=== PATIENT | female | born 1995 | race Caucasian/White ===

== ENCOUNTER 2016-09-07 18:46 | Emergency (ER) | payer OTHER ==
[2016-09-07 19:13] VITALS: BP 126/66
--- NOTE | 2016-09-16 22:50 | UC ---
Respiratory Complaint HPI - HPI Summary HPI Summary: painful cough for 2d. Feels tight and wheezy. Malaise, feverish, body aches. Will cough so hard she gags. hard to sleep at night due to cough. - History of Current Complaint Chief Complaint: UCRespiratory Stated Complaint: COUGH,FEVER Time Seen by Provider: 09/07/16 19:37 Hx Obtained From: Patient Hx Last Menstrual Period: End of Jul 2016 Onset/Duration: Gradual Onset, Lasting Days - 4 Timing: Constant Severity Initially: Mild Severity Currently: Mild Pain Intensity: 4 Pain Scale Used: 0-10 Numeric Character: Cough: Nonproductive Aggravating Factors: Exertion, Recumbent Position Alleviating Factors: Nothing Associated Signs And Symptoms: Positive: Dyspnea, Chills, Wheezing, URI, Nasal Congestion, Hoarseness, Sinus Discomfort - Risk Factors Pulmonary Embolism Risk Factors: Negative Cardiac Risk Factors: Negative Pseudomonas Risk Factors: Negative Tuberculosis Risk Factors: Negative - Allergies/Home Medications Allergies/Adverse Reactions: Allergies Allergy/AdvReac Type Severity Reaction Status Date / Time Acetaminophen [From Percocet] AdvReac Vomiting Verified 08/03/16 15:12 Oxycodone [From Percocet] AdvReac Vomiting Verified 08/03/16 15:12 bee sting Allergy Swelling Uncoded 09/07/16 19:13 PMH/Surg Hx/FS Hx/Imm Hx Respiratory History Of: Reports: Asthma - Surgical History Surgical History: None - Family History Known Family History: Positive: Hypertension Negative: Cardiac Disease, Diabetes - Social History Occupation: Student Lives: With Family Alcohol Use: None Substance Use Type: None Smoking Status (MU): Former Smoker When Did the Patient Quit Smoking/Using Tobacco: 2010 Review of Systems Constitutional: Fever, Chills, Fatigue Skin: Negative Eyes: Negative ENT: Sore Throat, Nasal Discharge Respiratory: Shortness Of Breath, Cough Cardiovascular: Negative Gastrointestinal: Negative Genitourinary: Negative Motor: Negative Neurovascular: Negative Musculoskeletal: Negative Neurological: Negative Psychological: Negative All Other Systems Reviewed And Are Negative: Yes Physical Exam Triage Information Reviewed: Yes Appearance: Well-Appearing, No Pain Distress, Well-Nourished Vital Signs: Initial Vital Signs Temp 99.3 F 09/07/16 19:08 Pulse 108 09/07/16 19:08 Resp 18 09/07/16 19:08 BP 126/66 09/07/16 19:08 Pulse Ox 98 02/01/17 19:08 Vital Signs Reviewed: Yes Eye Exam: Normal ENT: Positive: Hearing grossly normal, Pharyngeal erythema - mild, Nasal congestion, TMs normal, Muffled/hoarse voice - hoarse. Negative: Tonsillar swelling, Tonsillar exudate, Trismus Neck exam: Normal Respiratory Exam: Normal Respiratory: Positive: Lungs clear, Normal breath sounds, No respiratory distress, No accessory muscle use Cardiovascular Exam: Normal Musculoskeletal Exam: Normal Neurological Exam: Normal Psychological Exam: Normal Skin Exam: Normal Diagnostic Evaluation - Laboratory O2 Sat by Pulse Oximetry: 98 Respiratory Course/Dx - Differential Dx/Diagnosis Provider Diagnoses: URI Discharge - Discharge Plan Condition: Stable Disposition: HOME Prescriptions: Albuterol HFA INHALER* [Ventolin HFA Inhaler*] 1 - 2 puff INH Q4H PRN #1 mdi PRN Reason: wheezing, cough Guaifenesin-Codeine [Cheratussin AC] 1 - 2 teasp PO Q4HR PRN #120 ml MDD 30ml PRN Reason: Cough predniSONE TAB* [Deltasone TAB*] 40 mg PO DAILY #10 tab Patient Education Materials: Upper Respiratory Infection (ED) Referrals: No Primary Care Phys,NOPCP [Primary Care Provider] -
== END 2016-09-07 20:16 | disposition home or self-care (01) ==
LOC: UCCORT 18:46
DX: J06.9 Acute upper respiratory infection, unspecified (principal); Z88.6 Allergy status to analgesic agent; Z88.5 Allergy status to narcotic agent; Z87.891 Personal history of nicotine dependence
CPT/HCPCS: 99212; G0463

== ENCOUNTER 2017-03-06 17:35 | Emergency (ER) | payer OTHER ==
[2017-03-06 18:32] VITALS: BP 110/57
--- NOTE | 2017-03-06 19:59 | UC ---
Hand/Wrist HPI - HPI Summary HPI Summary: 21 yo female with right hand pain was cleaning under refrig and her partner dropped it on her hand right hand dominant - History Of Current Complaint Chief Complaint: UCUpperExtremity Stated Complaint: RIGHT HAND INJURY Time Seen by Provider: 03/06/17 19:50 Hx Obtained From: Patient Hx Last Menstrual Period: 02/27/17 Onset/Duration: Sudden Onset, Lasting Days Severity Initially: Moderate Severity Currently: Mild Pain Intensity: 3 Pain Scale Used: 0-10 Numeric Character Of Pain: Dull, Aching Aggravating Factor(s): Movement Associated Signs And Symptoms: Positive: Swelling Related History: Dominant Hand Right - Allergies/Home Medications Allergies/Adverse Reactions: Allergies Allergy/AdvReac Type Severity Reaction Status Date / Time Acetaminophen [From Percocet] AdvReac Vomiting Verified 03/06/17 18:32 Oxycodone [From Percocet] AdvReac Vomiting Verified 03/06/17 18:32 bee sting Allergy Swelling Uncoded 03/06/17 18:32 Home Medications: Home Medications Acetaminophen TAB* [Tylenol TAB*] 325 mg PO Q4H PRN 03/06/17 [History Confirmed 03/06/17] PMH/Surg Hx/FS Hx/Imm Hx Previously Healthy: Yes - Surgical History Surgical History: None - Family History Known Family History: Positive: Hypertension Negative: Cardiac Disease, Diabetes - Social History Alcohol Use: None Substance Use Type: None Smoking Status (MU): Former Smoker When Did the Patient Quit Smoking/Using Tobacco: 2010 Review of Systems Constitutional: Negative Skin: Negative Eyes: Negative ENT: Negative Respiratory: Negative Cardiovascular: Negative Gastrointestinal: Negative Genitourinary: Negative Motor: Negative Neurovascular: Negative Musculoskeletal: Decreased ROM, Edema Neurological: Negative Psychological: Negative All Other Systems Reviewed And Are Negative: Yes Physical Exam Triage Information Reviewed: Yes Appearance: Well-Appearing, No Pain Distress, Well-Nourished Vital Signs: Initial Vital Signs Temp 98 F 03/06/17 18:27 Pulse 85 03/06/17 18:27 Resp 16 03/06/17 18:27 BP 110/57 03/06/17 18:27 Pulse Ox 98 03/06/17 18:27 Vital Signs Reviewed: Yes Eyes: Positive: Conjunctiva Clear ENT: Positive: Hearing grossly normal. Negative: Nasal congestion, Nasal drainage, Trismus, Muffled/hoarse voice Neck: Positive: Supple, Nontender Respiratory: Positive: Lungs clear, Normal breath sounds, No respiratory distress, No accessory muscle use Cardiovascular: Positive: RRR, No Murmur Musculoskeletal: Positive: Edema @ - dorsum of right hand Neurological: Positive: Alert Psychological Exam: Normal Skin Exam: Normal Procedures - Splinting Location: ulnar gutter splint (right) Hand-Made Type: orthoglass Splint: ulnar Pre-Proc Neuro Vasc Exam: normal Post-Proc Neuro Vasc Exam: normal Hand/Wrist Course/Dx - Differential Dx/Diagnosis Provider Diagnoses: closed, minimally angulated rigth 5th metacarpal fracture Discharge - Discharge Plan Condition: Stable Disposition: HOME Patient Education Materials: Hand Fracture (ED) Referrals: Paxton Stanton MD [Medical Doctor] - As Soon As Possible Ángela Esqueda MD [Primary Care Provider] - Additional Instructions: splint elevate tylenol or advil if needed follow up with orthopedist this week You have a fracture of the right 5th metacarpal Images Hands: 1 - swollen and ecchymotic. most tender 4th and 5th MCs. skin intact
--- NOTE | 2017-03-06 20:18 | RAD ---
INDICATION: Right hand injury COMPARISON: None TECHNIQUE: AP, lateral, and oblique views were obtained. FINDINGS: There is a mildly angulated transverse fractures of the mid diaphysis of the fifth metacarpal. There are no other fractures. There is associated soft tissue swelling.. IMPRESSION: MILDLY ANGULATED FIFTH METACARPAL FRACTURE.
== END 2017-03-06 20:17 | disposition home or self-care (01) ==
LOC: UCCORT 17:35
DX: S62.306A Unspecified fracture of fifth metacarpal bone, right hand, initial encounter for closed fracture (principal); Z87.891 Personal history of nicotine dependence; W22.8XXA Striking against or struck by other objects, initial encounter; Y92.9 Unspecified place or not applicable; Z88.5 Allergy status to narcotic agent
CPT/HCPCS: 26600; 99211; G0463

== ENCOUNTER 2017-05-07 09:24 | Emergency (ER) | payer SELFPAY ==
[2017-05-07 09:46] VITALS: BP 120/82
--- NOTE | 2017-05-22 13:56 | UC ---
- HPI Summary HPI Summary: 21 y/o [id number] presents to the urgent care requesting a test. She did a test this morning at home and it was positive. LMP: 02/20/2017. She also request and letter for WIC and her family stating she is since they don't believe she is . Pt denies pelvic pain, urinary symptoms, vaginal discharge, SOB, chest pain, N/V/D - History of Current Complaint Chief Complaint: UCGeneralIllness Stated Complaint: PERSONAL Time Seen by Provider: 05/07/17 09:50 Hx Obtained From: Patient Chief Complaint: Other: - of being Timing: Lasting Weeks - LMP 02/20/2017 Current Severity: None Pain Intensity: 0 Character: None Aggravating Factors: Nothing Alleviating Factors: Nothing Associated Signs and Symptoms: Positive: Negative - Assessment Hx Now: Yes - Allergies/Home Medications Allergies/Adverse Reactions: Allergies Allergy/AdvReac Type Severity Reaction Status Date / Time Acetaminophen [From Percocet] AdvReac Vomiting Verified 05/07/17 09:46 Oxycodone [From Percocet] AdvReac Vomiting Verified 05/07/17 09:46 bee sting Allergy Swelling Uncoded 05/07/17 09:46 Home Medications: Home Medications Without A Vit W/ Fe F [ Formula A-Free] 1 tab PO DAILY [History Confirmed 05/07/17] PMH/Surg Hx/FS Hx/Imm Hx Previously Healthy: Yes Respiratory History: Asthma - Surgical History Surgical History: None - Family History Known Family History: Positive: Hypertension Negative: Cardiac Disease, Diabetes - Social History Occupation: Unemployed Lives: With Family Alcohol Use: None Substance Use Type: None Smoking Status (MU): Former Smoker When Did the Patient Quit Smoking/Using Tobacco: 2010 Review of Systems Constitutional: Negative Skin: Negative Eyes: Negative ENT: Negative Respiratory: Negative Cardiovascular: Negative Gastrointestinal: Negative Genitourinary: Negative Motor: Negative Neurovascular: Negative Musculoskeletal: Negative Neurological: Negative Psychological: Negative Is Patient Immunocompromised?: No All Other Systems Reviewed And Are Negative: Yes Physical Exam - Physical Exam Triage Information Reviewed: Yes Vital Signs Reviewed: Yes Appearance: Positive: Well-Appearing, No Pain Distress, Well-Nourished Skin: Positive: Warm, Skin Color Reflects Adequate Perfusion, Dry Head/Face: Positive: Normal Head/Face Inspection Eyes: Positive: Normal, EOMI, KEILY, Conjunctiva Clear ENT: Positive: Normal ENT inspection, Hearing grossly normal, Pharynx normal, TMs normal Neck: Positive: Supple, Nontender, No Lymphadenopathy Respiratory/Lung Sounds: Positive: Clear to Auscultation, Breath Sounds Present Cardiovascular: Positive: Normal, RRR, Pulses are Symmetrical in both Upper and Lower Extremities, S1, S2 Abdomen Description: Positive: Nontender, No Organomegaly, Soft. Negative: CVA Tenderness (R), CVA Tenderness (L) Bowel Sounds: Positive: Present Musculoskeletal: Positive: Normal, Strength/ROM Intact Neurological: Positive: Normal, Sensory/Motor Intact, Alert, Oriented to Person Place, Time, CN Intact II-III, Reflexes Intact Psychiatric: Positive: Normal Course/Dx - Course Course Of Treatment: 21 y/o [id number] presents to the urgent care requesting a test. She did a test this morning at home and it was positive. LMP: 02/20/2017. She also request and letter for WIC and her family stating she is since they don't believe she is . Pt denies pelvic pain, urinary symptoms, vaginal discharge, SOB, chest pain, N/V/D. Hx obtained.PE: WNL, UA and test ordered. UA result:2+ blood,2+ leukoesteraces. Urine will be sent to culture to r/o UTI. test: positive. Pt is pregnanct about 10 weeks. Probable delivery date 11/29/2017. Pt referred to OBGYN for care and advised to continue taking her Vitamins. Pt given letter for WIC. Pt understood and agreed with plan of care. Left the clinic ambulating. - Differential Diagnosis/HQI/PQRI: Cervicitis, Early , UTI - Diagnoses Provider Diagnoses: Discharge - Discharge Plan Condition: Stable Disposition: HOME Patient Education Materials: (ED) Forms: *Gen. Provider Communication Referrals: Ángela Esqueda MD [Primary Care Provider] - 2 Days Additional Instructions: 1-Please start taking Multivitamins. F/u with your OBGYN for further evaluation and treatment on your . 2-Your Urine sent for culture there is probability you may have a Urinary tract infection. If anything returns abnormal you will be notified and treatment will be sent to pharmacy. Please increase fluid intake and drink cranberry juice.
== END 2017-05-07 10:19 | disposition home or self-care (01) ==
LOC: UCCORT 09:24
DX: Z33.1 Pregnant state, incidental (principal); J45.909 Unspecified asthma, uncomplicated; Z88.5 Allergy status to narcotic agent; Z88.6 Allergy status to analgesic agent; Z91.030 Bee allergy status; Z87.891 Personal history of nicotine dependence
CPT/HCPCS: 81003; 84702; 87086; 99211; G0463

== ENCOUNTER 2017-08-07 08:27 | Emergency (ER) | payer MEDICAID ==
[2017-08-07 08:40] VITALS: BP 117/59
--- NOTE | 2017-08-07 08:42 | UC ---
Respiratory Complaint HPI - HPI Summary HPI Summary: 22 year old female 5 weeks presents with complains of cough and chest congestion. - History of Current Complaint Chief Complaint: UCRespiratory Stated Complaint: COUGH,RUNNY NOSE Time Seen by Provider: 08/07/17 08:35 Hx Obtained From: Patient Hx Last Menstrual Period: 18 weeks Onset/Duration: Sudden Onset Severity Initially: Moderate Severity Currently: Moderate Character: Cough: Nonproductive - Allergies/Home Medications Allergies/Adverse Reactions: Allergies Allergy/AdvReac Type Severity Reaction Status Date / Time Oxycodone [From Percocet] AdvReac Vomiting Verified 08/07/17 08:41 bee sting Allergy Swelling Uncoded 08/07/17 08:41 PMH/Surg Hx/FS Hx/Imm Hx Previously Healthy: Yes - Surgical History Surgical History: None - Family History Known Family History: Positive: Hypertension Negative: Cardiac Disease, Diabetes - Social History Alcohol Use: None Substance Use Type: None Smoking Status (MU): Former Smoker When Did the Patient Quit Smoking/Using Tobacco: 2010 Review of Systems Constitutional: Negative Skin: Negative Eyes: Negative ENT: Negative Respiratory: Cough Cardiovascular: Negative Gastrointestinal: Negative Genitourinary: Negative Motor: Negative Neurovascular: Negative Musculoskeletal: Negative Neurological: Negative Psychological: Negative All Other Systems Reviewed And Are Negative: Yes Physical Exam Triage Information Reviewed: Yes Vital Signs: Initial Vital Signs Temp 36.4 C 08/07/17 08:38 Pulse 93 08/07/17 08:38 Resp 16 08/07/17 08:38 BP 117/59 08/07/17 08:38 Pulse Ox 98 08/07/17 08:38 Vital Signs Reviewed: Yes Eye Exam: Normal ENT: Positive: Nasal congestion, Nasal drainage, Sinus tenderness Dental Exam: Normal Neck exam: Normal Neck: Positive: 1 Respiratory Exam: Normal Cardiovascular Exam: Normal Abdominal Exam: Normal Musculoskeletal Exam: Normal Neurological Exam: Normal Psychological Exam: Normal Skin Exam: Normal UC Diagnostic Evaluation - Laboratory O2 Sat by Pulse Oximetry: 98 Respiratory Course/Dx - Differential Dx/Diagnosis Provider Diagnoses: allergic rhinitis. wheezing Discharge - Discharge Plan Condition: Stable Disposition: HOME Patient Education Materials: Allergic Rhinitis (ED), Acute Cough (ED) Referrals: Ángela Esqueda MD [Primary Care Provider] -
== END 2017-08-07 09:27 | disposition home or self-care (01) ==
LOC: UCCORT 08:27
DX: O26.892 Other specified pregnancy related conditions, second trimester (principal); J30.9 Allergic rhinitis, unspecified; R06.2 Wheezing; Z3A.18 18 weeks gestation of pregnancy; Z88.5 Allergy status to narcotic agent; Z91.030 Bee allergy status; Z87.891 Personal history of nicotine dependence
CPT/HCPCS: 87502; 87651; 99211; G0463

== ENCOUNTER 2018-04-22 18:35 | Emergency (ER) | payer OTHER ==
[2018-04-22 19:39] VITALS: BP 124/68
--- NOTE | 2018-04-22 19:42 | UC ---
UC Dental HPI - HPI Summary HPI Summary: begining yesterday pain and swelling left lower jaw--decayed tooth -(second to last molar) - History of Current Complaint Chief Complaint: UCDentalProblem Stated Complaint: DENTAL Time Seen by Provider: 04/22/18 19:40 Hx Obtained From: Patient Hx Last Menstrual Period: 04/12/18 ?: No Onset/Duration: Sudden Onset, Lasting Days - 1 Pain Intensity: 9 Pain Scale Used: 0-10 Numeric Aggravating Factor(s): Nothing Alleviating Factor(s): Nothing Related History: Previous Dental Care on Same Tooth, Swelling - Allergies/Home Medications Allergies/Adverse Reactions: Allergies Allergy/AdvReac Type Severity Reaction Status Date / Time oxycodone AdvReac Vomiting Verified 04/22/18 19:28 bee sting Allergy Swelling Uncoded 08/07/17 08:41 Home Medications: Home Medications Acetaminophen TAB* [Tylenol TAB*] 650 mg PO Q4H PRN 04/22/18 [History Confirmed 04/22/18] Albuterol HFA INHALER* [Ventolin HFA Inhaler*] 2 puff INH Q4H PRN 04/22/18 [ History Confirmed 04/22/18] Bcp 1 tab PO DAILY 04/22/18 [History Confirmed 04/22/18] PMH/Surg Hx/FS Hx/Imm Hx Previously Healthy: Yes - Surgical History Surgical History: None - Family History Known Family History: Positive: Hypertension Negative: Cardiac Disease, Diabetes - Social History Occupation: Employed Full-time Lives: With Family Alcohol Use: Rare Substance Use Type: None Smoking Status (MU): Never Smoked Tobacco When Did the Patient Quit Smoking/Using Tobacco: 2010 Review of Systems Constitutional: Negative Skin: Negative Eyes: Negative ENT: Dental Pain Respiratory: Negative Cardiovascular: Negative Gastrointestinal: Negative Genitourinary: Negative Motor: Negative Neurovascular: Negative Musculoskeletal: Negative Neurological: Negative Psychological: Negative Is Patient Immunocompromised?: No All Other Systems Reviewed And Are Negative: Yes Physical Exam Triage Information Reviewed: Yes Appearance: Well-Appearing, Pain Distress, Obese Vital Signs: Initial Vital Signs Temp 98.9 F 04/22/18 19:33 Pulse 88 04/22/18 19:33 Resp 20 04/22/18 19:33 BP 124/68 04/22/18 19:33 Pulse Ox 98 04/22/18 19:33 Vital Signs Reviewed: Yes Eye Exam: Normal Eyes: Positive: Conjunctiva Clear ENT Exam: Normal ENT: Positive: Normal ENT inspection, Hearing grossly normal, Pharynx normal, TMs normal, Dental tenderness, Uvula midline. Negative: Nasal congestion, Trismus, Muffled voice, Hoarse voice, Sinus tenderness Dental Exam: Other Dental: Positive: Percussion Tenderness @, Gross Decay/Caries @, Abscess @ - left lower jaw Neck exam: Normal Neck: Positive: Supple, Nontender, No Lymphadenopathy Respiratory Exam: Normal Respiratory: Positive: Chest non-tender, Lungs clear, Normal breath sounds, No respiratory distress, No accessory muscle use Cardiovascular Exam: Normal Cardiovascular: Positive: RRR, No Murmur, Pulses Normal, Brisk Capillary Refill Musculoskeletal Exam: Normal Musculoskeletal: Positive: Strength Intact, ROM Intact, No Edema Neurological Exam: Normal Neurological: Positive: Alert, Muscle Tone Normal Psychological Exam: Normal Skin Exam: Normal Dental Complaint Course/Dx - Course Course Of Treatment: ibuprofen, hydrocodone, clindamycin, call dentist in morning for an appointment - Differential Dx/Diagnosis Provider Diagnoses: left lower gum abscess with dental decay Discharge - Sign-Out/Discharge Documenting (check all that apply): Patient Departure All imaging exams completed and their final reports reviewed: No Studies - Discharge Plan Condition: Stable Disposition: HOME Prescriptions: Clindamycin Cap(NF) [Clindamycin Cap 300 mg Cap(NF)] 300 mg PO Q6H #40 cap Hydrocodone/Acetaminophen [Hydrocodone-Acetamin 5-325 mg] 1 each PO Q6HR PRN # 10 tablet MDD 4 PRN Reason: pain Ibuprofen TAB* [Motrin TAB* 600 MG] 600 mg PO Q6H PRN #40 tab PRN Reason: Pain Patient Education Materials: Dental Abscess (ED) Referrals: No Primary Care Phys,NOPCP [Primary Care Provider] - Additional Instructions: follow with dentist LAISHA! - Billing Disposition and Condition Condition: STABLE Disposition: Home
[2018-04-22] MEDS ORDERED: HYDROcodone/ACETAMIN 5-325 MG* 1 TAB PO ONE ×2 (19:47→19:54)
[2018-04-22] MEDS ORDERED: Clindamycin CAP* 150 MG PO ONE (19:48)
== END 2018-04-22 20:10 | disposition home or self-care (01) ==
LOC: UCCORT 18:35
CPT/HCPCS: 99213; A9270-GY; G0463

== ENCOUNTER 2018-06-24 09:02 | Emergency (ER) | payer OTHER ==
--- NOTE | 2018-06-24 10:01 | UC ---
UC General HPI - HPI Summary HPI Summary: PT C/O PAIN IN HER R SIDE AND INTO HER R BACK X 3 DAYS WITH WORSENING. NO FEVER, CHILLS, N/V/D OR DYSURIA OR VAGINAL D/C. WORSENS WITH LYING BACK AND MOVEMENT. NO INJURY OR ILLNESS(ACUTE). - History of Current Complaint Stated Complaint: RT SIDE COMPLAINT Time Seen by Provider: 06/24/18 09:48 Hx Obtained From: Patient Hx Last Menstrual Period: 04/12/18 Onset/Duration: Gradual Onset Timing: Constant Associated Signs & Symptoms: Positive: Abdominal Pain - Allergy/Home Medications Allergies/Adverse Reactions: Allergies Allergy/AdvReac Type Severity Reaction Status Date / Time oxycodone AdvReac Vomiting Verified 06/24/18 09:51 bee sting Allergy Swelling Uncoded 06/24/18 09:51 PMH/Surg Hx/FS Hx/Imm Hx Respiratory History: Asthma - Surgical History Surgical History: None - Family History Known Family History: Positive: Hypertension Negative: Cardiac Disease, Diabetes - Social History Lives: With Family Alcohol Use: Rare Substance Use Type: None Smoking Status (MU): Never Smoked Tobacco When Did the Patient Quit Smoking/Using Tobacco: 2010 - Immunization History Vaccination Up to Date: Yes Review of Systems All Other Systems Reviewed And Are Negative: Yes Constitutional: Positive: Negative Skin: Positive: Negative Eyes: Positive: Negative ENT: Positive: Negative Respiratory: Positive: Negative Cardiovascular: Positive: Negative Gastrointestinal: Positive: Abdominal Pain Genitourinary: Positive: Negative Motor: Positive: Negative Neurovascular: Positive: Negative Musculoskeletal: Positive: Negative Neurological: Positive: Negative Psychological: Positive: Negative Is Patient Immunocompromised?: No Physical Exam Triage Information Reviewed: Yes Appearance: Well-Appearing Vital Signs Reviewed: Yes Eyes: Positive: Conjunctiva Clear ENT: Positive: Pharynx normal, TMs normal. Negative: Nasal congestion, Nasal drainage Neck: Positive: Supple, Nontender, No Lymphadenopathy Respiratory: Positive: Lungs clear, Normal breath sounds Cardiovascular: Positive: RRR, No Murmur Abdomen Description: Positive: Other: - Hypoactive BS. Soft. Tender in RLQ with guarding on deep palpation but no rebound. No mass, HSM or CVA tenderness. Musculoskeletal: Positive: ROM Intact Neurological: Positive: Alert Psychological: Positive: Age Appropriate Behavior Skin Exam: Normal Course/Dx - Course Course Of Treatment: WILL NEED TO R/O APPENDICITIS, PREGNANACY/ECTOPIC. DOUBT OVARIAN IN NATURE. 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 - Differential Dx - Multi-Symptom Provider Diagnoses: RLQ PAIN Discharge - Sign-Out/Discharge Documenting (check all that apply): Patient Departure All imaging exams completed and their final reports reviewed: No Studies - Discharge Plan Condition: Stable Disposition: TRANS HIGHER LVL OF CARE FAC Referrals: No Primary Care Phys,NOPCP [Primary Care Provider] - Additional Instructions: LEAVE HERE AND GO DIRECTLY TO THE [place] ER DISCUSSED. DO NOT EAT OR DRINK UNTIL CLEARED. - Billing Disposition and Condition Condition: STABLE Disposition: Trans Higher Lvl of Care Fac - Attestation Statements Provider Attestation: Per institutional requirements, I have reviewed the chart, however, I was not consulted specifically or made aware of this patient by the midlevel provider. I did not personally evaluate, interact with , or disposition this patient.
[2018-06-24 10:05] VITALS: BP 125/66
== END 2018-06-24 10:05 | disposition short-term general hospital (02) ==
LOC: UCCORT 09:02
DX: R10.31 Right lower quadrant pain (principal); Z88.5 Allergy status to narcotic agent
CPT/HCPCS: 99212; G0463

== ENCOUNTER 2018-08-11 19:22 | Emergency (ER) | payer OTHER ==
--- OUTSIDE RECORDS SUMMARY | 2018-08-11 19:45 | XMS REPORT | Continuity of Care Document ---
:1995 External Reference #:[id number] Author Name Tracy Watters MD Address [address] [place] [address] Care Team Providers Name Role Phone Juan F Jimenez NP Care Team Information Campaign Manager Unavailable Juan F Jimenez NP Primary Care Physician Unavailable Payers Type Date Identification Numbers Payment Provider Subscriber Effective: 2014 Policy Number: [id number] Fidel[employer] Medicaid Xiao August Post PayID: [id number] [address] [place] [address] Advance Directives Description No Information Available Problems Date Description Provider Status Onset: 12/26/2012 Migraine Lindsay Beck NP Active Onset: 06/26/2018 Kidney stone Georges Jones M.D. Active Onset: 01/22/2014 Normal Sera Paez MD Resolved Resolved: 03/15/2015 Onset: 11/10/2010 Fracture 1 Or More Middle Proximal Sundeep Cyr MD Resolved Phalanx Or Phalang Closed Resolved: 10/29/2015 Onset: 11/10/2010 Aftercare For Healing Traumatic Sundeep Cyr MD Resolved Fracture Of Other Bone Resolved: 10/29/2015 Onset: 10/02/2012 Sprain of ankle Dean Adorno MD Resolved Resolved: 10/29/2015 Family History Date Family Member(s) Problem(s) Comments General Non Contributory : (01/2018) Mother due to Cervical Cancer Social History Type Date Description Comments Sex Unknown Lives With Lives With Sister Lives With Children 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 Tobacco Use Start: Unknown Never Smoked Cigarettes ETOH Use Denies alcohol use Recreational Drug Use Denies Drug Use Tobacco Use Start: Unknown End: Unknown Patient is a former smoker Smoking Status Reviewed: 07/11/18 Patient is a former smoker Allergies, Adverse Reactions, Alerts Date Description Reaction Status Severity Comments 10/02/2012 Percocet Active 10/18/2010 NKDA Inactive Medications Medication Date Status Form Strength Qnty SIG Indications Ordering Provider Cephalexin 07/13/ Hx Capsules 500mg 1 tablet by Robert, 2018 - mouth given [facility], 07/14/ once in M.D. 2018 office for procedure No Active 07/06/ Hx Unknown Medications 2017 - 2017 Tamsulosin HCL 06/26/ Hx Capsules 0.4mg 14cap 1 by mouth N20.0 Robert, 2018 - s every day at [facility], 07/06/ bedtime M.D. 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 2017 stomach Sertraline HCL 09/10/ Hx Tablets 100mg 30tab 1 by mouth Philippe 2016 - s every day Sera 02/14/ MD 2017 Bupropion HCL 06/16/ Hx Tablets ER 150mg 60tab 1 by mouth TORRES Paez (SR) 2015 - 12HR s twice a day Sera 09/10/ MD 2016 Metamucil 03/25/ Hx Powder QS 1/2 tsp by Philippe 2015 - mouth every Sera 02/14/ day , 2017 Meloxicam 03/12/ Hx Tablets 15mg 30tab 1 by mouth Philippe, 2015 - s every day c Sera 09/10/ food , 2016 Norgestim-Eth 03/09/ Hx Tablets 0.18/0.21 28tab 1 by mouth Philippe Estrad 2014 - /0.25 s every day Sera Triphasic 02/14/ mg-35 mcg , 2017 Bupropion HCL 11/24/ Hx Tablets ER 150mg 60tab 1 by mouth Philippe, ER (SR) 2015 - HR s twice a day Sera 03/12/ MD 2015 Claritin 11/24/ Hx Tablets 10mg 30tab 1 by mouth Philippe, 2015 - s every day Sera 03/12/ MD 2015 Citalopram 10/13/ Hx Tablets 40mg 30tab 1 by mouth Karyn Paezbromide 2015 - s every day Sera 09/10/ MD 2016 Dicyclomine HCL 09/25/ Hx Capsules 10mg 60cap take one Philippe 2014 - s capsule by Sera 11/24/ mouth four MD 2015 times a day as needed Docusate Sodium 09/25/ Hx Capsules 100mg 30cap 1 by mouth Philippe, 2015 - s once a day Sera 03/12/ as needed , 2014 Ventolin HFA 08/25/ Hx Aerosol 108mcg/Ac 1unit 1-2 Philippe 2015 - t s inhalations Sera 03/12/ every MD 2015 hours as needed Tri-Sprintec 05/27/ Hx Tablets 28tab 1 by mouth Philippe, 2014 - s every day Sera 11/24/ MD 2015 Nexplanon 05/08/ Hx Implant 68mg Philippe, 2014 - Sera 03/12/ MD 2015 Citalopram 05/05/ Hx Tablets 40mg 30tab 1 by mouth Philippe Hydrobromide 2014 - s every day Sera 11/24/ MD 2015 Ibuprofen 04/15/ Hx Tablets 600mg 50tab one every 4 Philippe 2014 - s hours by Sera 03/12/ mouth as , 2014 needed Fa 01/22/ Hx Tablets Philippe 2013 - Sera 11/24/ , 2014 No Active Unknown Medications 2012 - 2014 Tylenol 8 Hour / Hx Tablets ER 650mg prn Unknown - 2010 Hydrocodone / Hx Tablets 30tab 1 tab by Unknown Bitartrate/Acet 0000 s mouth every aminophen 4 hours as needed Metronidazole / Hx Tablets 500mg Unknown 2014 Ondansetron HCL / Hx Tablets 4mg Unknown 2014 Anexsia / Hx Tablets 5-325mg Unknown 2014 Tylenol With / Hx Tablets 300-30mg Unknown Codeine #3 - 2014 Ventolin HFA / Hx Aerosol 108(90Bas 2 puffs by J45.901 Unknown 0000 - e) mouth every 06/26/ mcg/Act 4 hours as 2018 needed Ondansetron / Hx Tablets 4mg 1 by mouth Pascual 0000 - Dispers every 8 Darrell, 07/06/ hours for 2018 nausea Oxycodone-Aceta / Hx Tablets 5-325mg 1 tablet by ren Garner 0000 - mouth every Darrell, 07/06/ 4-6 hors for 2018 pain Medications Administered in Office Medication Date Status Form Strength Qnty SIG Indications Ordering Provider PPD Administered Injection Vannessa Snow FNP PPD Administered Injection Ángela Esqueda, 6 MBernie Immunizations CPT Code Status Date Vaccine Lot # [id number] Given 07/06/2018 Influenza Virus Vaccine, Quadrivalent, 36 Mos+, [id number] .[id number] Given 10/29/2015 Influenza Vaccine (Fluzone) Age 3 And Older [id number] Given 05/27/2014 Influenza Virus Vaccine Intranasal [id number] Given 03/24/2014 Tdap injection Vital Signs Date Vital Result Comment 07/13/2018 7:24am BP Systolic 117 mmHg BP Diastolic 71 mmHg Body Temperature 97.6 F Heart Rate 74 /min Respiratory Rate 16 /min Height 63 inches 5'3" Hudson body weight in kilograms 52 kg O2 % BldC Oximetry 98 % Pain Level 0 07/06/2018 10:09am BP Systolic 118 mmHg BP Diastolic 72 mmHg Body Temperature 97.6 F Heart Rate 64 /min Respiratory Rate 18 /min Height 63 inches 5'3" Weight 171.00 lb BMI (Body Mass Index) 30.3 kg/m2 BSA (Body Surface Area) 1.81 m2 Hudson body weight in kilograms 52 kg O2 % BldC Oximetry 96 % 06/26/2018 1:03pm BP Systolic 117 mmHg BP Diastolic 74 mmHg Body Temperature 98.6 F Heart Rate 88 /min Respiratory Rate 16 /min Height 63 inches 5'3" Weight 180.00 lb BMI (Body Mass Index) 31.9 kg/m2 BSA (Body Surface Area) 1.85 m2 Hudson body weight in kilograms 52 kg O2 % BldC Oximetry 97 % Pain Level 10 Right Flank 02/14/2017 4:05pm BP Systolic 118 mmHg BP Diastolic 68 mmHg Body Temperature 98.4 F Heart Rate 83 /min Height 64 inches 5'4" Weight 235.25 lb BMI (Body Mass Index) 40.4 kg/m2 BSA (Body Surface Area) 2.10 m2 Hudson body weight in kilograms 54 kg O2 % BldC Oximetry 96 % 10/29/2015 10:43am BP Systolic Sitting Left Arm 118 mmHg BP Diastolic Sitting Left Arm 72 mmHg Heart Rate 88 /min Respiratory Rate 18 /min Height 64 inches 5'4" Weight 207.50 lb BMI (Body Mass Index) 35.6 kg/m2 BSA (Body Surface Area) 1.99 m2 Last Menstrual Period [id number] 09/10/2015 6:34pm BP Systolic 126 mmHg BP Diastolic 82 mmHg Height 64 inches 5'4" Weight 209.12 lb BMI (Body Mass Index) 35.9 kg/m2 BSA (Body Surface Area) 1.99 m2 Last Menstrual Period [id number] 03/25/2015 10:49am BP Systolic 122 mmHg BP Diastolic 68 mmHg Height 64 inches 5'4" per patient Weight 209.50 lb BMI (Body Mass Index) 36.0 kg/m2 BSA (Body Surface Area) 2.00 m2 03/12/2015 2:22pm BP Systolic 130 mmHg BP Diastolic 75 mmHg Height 64 inches 5'4" per patient Weight 180.00 lb per patient BMI (Body Mass Index) 30.9 kg/m2 BSA (Body Surface Area) 1.87 m2 03/09/2015 4:03pm BP Systolic 144 mmHg BP Diastolic 84 mmHg Height 63 inches 5'3" Weight 215.00 lb BMI (Body Mass Index) 38.1 kg/m2 BSA (Body Surface Area) 1.99 m2 11/24/2014 2:17pm BP Systolic 106 mmHg BP Diastolic 70 mmHg Height 63 inches 5'3" Last Menstrual Period [id number] 09/25/2014 3:24pm BP Systolic 116 mmHg BP Diastolic 70 mmHg Body Temperature 97.7 F Height 63 inches 5'3" Weight 208.00 lb 05/27/2014 2:23pm BP Systolic 118 mmHg BP Diastolic 64 mmHg Height 63 inches 5'3" Weight 184.00 lb 05/08/2014 10:53am BP Systolic 108 mmHg BP Diastolic 68 mmHg Height 63 inches 5'3" Weight 175.00 lb 04/02/2014 11:19am BP Systolic 118 mmHg BP Diastolic 68 mmHg Weight 191.00 lb 03/24/2014 7:32pm BP Systolic 122 mmHg BP Diastolic 70 mmHg Height 63 inches 5'3" Weight 194.00 lb 03/17/2014 7:19pm BP Systolic 128 mmHg BP Diastolic 70 mmHg Height 63 inches 5'3" Weight 190.00 lb 03/10/2014 7:36pm BP Systolic 130 mmHg BP Diastolic 74 mmHg Height 63 inches 5'3" Weight 194.00 lb 02/24/2014 7:22pm BP Systolic 142 mmHg BP Diastolic 70 mmHg Height 63 inches 5'3" Weight 194.00 lb 02/10/2014 6:35pm BP Systolic 132 mmHg BP Diastolic 74 mmHg Height 63 inches 5'3" Weight 190.00 lb 01/22/2014 11:42am BP Systolic 108 mmHg BP Diastolic 70 mmHg Height 63 inches 5'3" Weight 190.00 lb 12/16/2013 7:17pm BP Systolic 110 mmHg BP Diastolic 68 mmHg Height 63 inches 5'3" Weight 188.00 lb 11/11/2013 7:25pm BP Systolic 130 mmHg BP Diastolic 78 mmHg Height 63 inches 5'3" Weight 188.00 lb 12/19/2012 10:17am BP Systolic 108 mmHg BP Diastolic 64 mmHg Body Temperature 97.6 F Heart Rate 78 /min Respiratory Rate 20 /min Height 63 inches 5'3" Weight 203.00 lb 10/02/2012 11:03am BP Systolic Sitting Right Arm 114 mmHg BP Diastolic Sitting Right Arm 62 mmHg Height 63.25 inches 5'3.25" Weight 194.00 lb BMI (Body Mass Index) 34.1 kg/m2 10/18/2010 10:26am Height 65 inches 5'5" Weight 164.00 lb BMI (Body Mass Index) 27.3 kg/m2 Height Percentile 62 % Weight Percentile 92nd Results Test Date Facility Test Result H/L Range Note Hemoglobin/Federico 01/04/2018 [facility] Hemoglobin 10.8 gm/dL Low 11.6-15.8 1 tocrit [address] [place], [place] [id number] [phone] Hematocrit 32.3 % Low 36.0-46.1 CBC 01/03/2018 [facility] White Blood Count 13.4 K/uL High 3.1-10.7 [address] [place], [place] [id number] [phone] Red Blood Count 3.90 M/uL N 3.90-5.40 Hemoglobin 11.6 gm/dL N 11.6-15.8 Hematocrit 35.9 % Low 36.0-46.1 Mean Cell Volume 92.1 fl N 80.9-99.0 Mean Corpuscular HGB 29.7 pg N 25.9-32.7 Mean Corpuscular HGB Conc 32.3 g/dL N 30.8-34.3 Platelet Count 258 K/uL N 155-360 Red Cell Distri Width %CV 13.3 % N 11.7-14.4 Mean Platelet Volume 9.9 fL N 8.9-12.4 Type And Screen 01/03/2018 [facility] Patient Blood Type A POS N [address] [place], [place] [id number] [phone] Antibody Screen Negative N Negative Laboratory test 01/03/2018 [facility] Treponema Negative Negative [address] [place] [address] [place] [phone] Laboratory test 05/07/2017 [facility] HCG, Quant > 605436.0 3, [address] mIU/mL [place], [place] [id number] [phone] Ua Routine 05/07/2017 [facility] Urine Color YELLOW Yellow [address] [place] [address] [phone] Urine Clarity CLEAR Clear Urine Glucose - Dipstick NEGATIVE mg/dL Negative Urine Bilirubin - Dipstick NEGATIVE Negative Urine Ketone 40 mg/dL High Negative Urine Specific [place] >=1.030 N 1.010-1.030 Urine Blood LARGE Abnormal Negative Urine PH 5.5 Low 6.5-7.5 Urine Protein - Dipstick TRACE mg/dL Negative Urine Urobilinogen - Dipstick 0.2 E.U./dL N 0.2-1.0 Urine Nitrite - Dipstick NEGATIVE Negative Urine Leuk Esterase NEGATIVE Negative Urine RBC 2-5 rbc/hpf 0-2 Urine WBC 0-2 wbc/hpf 0-7 Urine Epithelial Cells VERY FEW /lpf None Seen Source: URINE, CLEAN CAT <SEE NOTE> 5 Laboratory test 05/07/2017 [facility] Urine Culture SEE RESULT 6, 7 finding [phone] BELOW Laboratory test 03/21/2016 [facility] Urine Culture SEE RESULT 8, 9 finding [phone] BELOW Laboratory test 12/31/2015 [facility] Potassium 3.7 mmol/L N 3.5-5 finding [phone] Redraw .0 Ast Redraw 13 U/L N 13-39 Urinalysis Profile 12/31/2015 [facility] Urine Color Yellow N [phone] Urine Appearance Cloudy N Urine Specific [place] 1.015 N 1.010-1.030 Urine pH 6.0 N 5-9 Urine Urobilinogen Negative N Negative Urine Ketones Negative N Negative Urine Protein Negative N Negative Urine Leukocytes 2+ Abnormal Negative Urine Blood 2+ Abnormal Negative Urine Nitrite Negative N Negative Urine Bilirubin Negative N Negative Urine Glucose Negative N Negative Urine White Blood Cell Trace(0-5/hpf) N Absent Urine Red Blood Cell 2+(6-10/hpf) Abnormal Absent Urine Bacteria Absent N Absent Urine Squamous Epithelial Cell Present Abnormal Absent Laboratory test 12/31/2015 [facility] Urine Culture SEE RESULT 10 finding [phone] BELOW CBC Auto Diff 12/31/2015 [facility] White Blood 9.9 10^3/uL N 3.5-10 [phone] Count .8 Red Blood Count 4.48 10^6/uL N 4.0-5.4 Hemoglobin 12.9 g/dL N 12.0-16.0 Hematocrit 40 % N 35-47 Mean Corpuscular Volume 89 fL N 80-97 Mean Corpuscular Hemoglobin 29 pg N 27-31 Mean Corpuscular HGB Conc 32 g/dL N 31-36 Red Cell Distribution Width 13 % N 10.5-15 Abs Neutrophils 5.9 10^3/uL N 1.5-7.7 Abs Lymphocytes 2.8 10^3/uL N 1.0-4.8 Abs Monocytes 0.6 10^3/uL N 0-0.8 Abs Eosinophils 0.4 10^3/uL N 0-0.6 Abs Basophils 0.1 10^3/uL N 0-0.2 Abs Nucleated RBC 0 10^3/uL N Granulocyte % 60.2 % N 38-83 Lymphocyte % 28.6 % N 25-47 Monocyte % 5.8 % N 1-9 Eosinophil % 4.0 % N 0-6 Basophil % 1.4 % N 0-2 Nucleated Red Blood Cells % 0 N Platelet Count 210 10^3/uL N 150-450 Comp Metabolic Panel 12/31/2015 [facility] Sodium 135 mmol/L N 133-145 [phone] Chloride 103 mmol/L N 101-111 Co2 Carbon Dioxide 27 mmol/L N 22-32 Glucose 80 mg/dL N 70-100 Blood Urea Nitrogen 10 mg/dL N 6-24 Creatinine 0.78 mg/dL N 0.51-0.95 BUN/Creatinine Ratio 12.8 N 8-20 Calcium 9.4 mg/dL N 8.6-10.3 Total Protein 7.3 g/dL N 6.4-8.9 Albumin 4.2 g/dL N 3.2-5.2 Globulin 3.1 g/dL N 2-4 Albumin/Globulin Ratio 1.4 N 1-3 Total Bilirubin 0.50 mg/dL N 0.2-1.0 Alkaline Phosphatase 76 U/L N 34-104 Alt 16 U/L N 7-52 Egfr Non- 92.4 N >60 Egfr 118.8 N >60 11 Potassium TNP mmol/L N 3.5-5.0 12 Anion Gap TNP mmol/L N 2-11 Ast TNP U/L N 13-39 13 Laboratory test 12/31/2015 [facility] Lipase 16 U/L N 11.0-82.0 14 finding [phone] C Reactive Protein 5.90 mg/L High < 5.00 15 HCG < 0.60 mIU/mL N 16 Lactic Acid 0.6 mmol/L N 0.5-2.0 17 Laboratory test 12/13/2015 [facility] Urine SEE RESULT 18, 19 finding [phone] Culture BELOW Laboratory test 11/19/2015 [facility] Urine SEE RESULT 20 finding [phone] Culture BELOW Chlamydia/GC 09/10/2015 [facility] Chlamydia Negative Negative Amplification [address] Trachomatis, [place] [address] Berna [phone] Neisseria Gonorrhoeae, Berna Negative Negative Please note: See Note 21 Laboratory 09/10/2015 [facility] Cytology SEE RESULT 22 test finding [phone] Interface Order BELOW Laboratory 09/10/2015 [facility] Cytopathology Results on 23 test finding [address] Cervix/[place] [address] [phone] Chlamydia/GC 06/23/2015 [facility] Chlamydia POSITIVE High Negative Berna [address] Trachomatis, [place] [address] [phone] Neisseria Gonorrhoeae, Berna Negative Negative Please note: See Note 24 Laboratory test 06/23/2015 [facility] Chlamydia/GC Berna, See Note [address] [place] [address] [phone] Laboratory test 06/22/2015 [facility] SGPT/Alt 23 U/L 12-[address] [place] [address] [phone] HCG,Serum (Qualitative) NEGATIVE (Negative) Hepatitis B 06/22/2015 [facility] HBSAb Nonreactive Surface [address] Interpretation [place] [address] [phone] Hepatitis B Surface Antibody 9.2 mIU/mL <3.1 26 Hepatitis C 06/22/2015 [facility] Hepatitis C Nonreactive Antibody [address] [place] [address] [phone] Signal/Cutoff ratio < 0.02 <0.80 27 Laboratory test 06/22/2015 [facility] Ua RFX Micro See Note [address] + [place] [address] [phone] Laboratory test 03/11/2015 [facility] Urine HCG NEGATIVE Negative [address] ([place] [address] ) [phone] Comprehensive 01/27/2015 [facility] Glucose 76 mg/dL 74-106 Metabolic Panel [address] [place] [address] [phone] BUN 6 mg/dL Low 7-18 Creatinine 0.8 mg/dL 0.6-1.3 Glom Filtration Rate, Estimate >60 mL/min >60 If >60 mL/min >60 30 BUN/Creat 7.5 ratio Sodium 139 mmol/L 136-145 Potassium 3.7 mmol/L 3.5-5.1 Chloride 105 mmol/L 98-107 Carbon Dioxide 26 mmol/L 21-32 Anion Gap 8 mEq/L 8-16 Calcium 8.9 mg/dL 8.5-10.1 Total Protein 8.4 g/dL High 6.4-8.2 Albumin 4.1 g/dL 3.4-5.0 Globulin 4.3 g/dL 1.9-4.3 Alb/Glob 1.0 ratio Bilirubin,Total 0.5 mg/dL 0.2-1.0 Sgot/Ast 14 U/L Low 15-37 31 SGPT/Alt 24 U/L 12-78 Alkaline Phosphatase 110 U/L 45-117 Laboratory test 01/27/2015 [facility] Lipase 103 U/L 73-[address] [place] [address] [phone] CBC W/Automated 01/27/2015 [facility] White Blood 10.2 K/uL 3.1-10.[address] [place] [place] [address] [phone] Red Blood Count 4.73 M/uL 3.90-5.40 Hemoglobin 13.6 gm/dL 11.6-15.8 Hematocrit 41.6 % 36.0-46.1 Mean Cell Volume 87.9 fl 80.9-99.0 Mean Corpuscular HGB 28.8 pg 25.9-32.7 Mean Corpuscular HGB Conc 32.7 g/dL 30.8-34.3 Platelet Count 347 K/uL 155-360 Red Cell Distri Width SD 45.1 fl 3-47 Red Cell Distri Width %CV 14.3 % 11.7-14.4 Mean Platelet Volume 8.7 fL Low 8.9-12.4 Neut% 64.7 % 40.4-72.8 Lymph % 25.4 % 17.0-46.1 Obion % 7.0 % 4.3-13.2 Eo% 2.5 % 0.0-6.6 Bas% 0.4 % 0.0-1.1 Neut# 6.59 K/uL 1.0-7.0 Lymph # 2.59 K/uL 1.8-7.0 Obion # 0.71 K/uL 0.3-0.9 Eos # 0.25 K/uL 0.0-0.5 Baso # 0.04 K/uL 0.0-0.1 Laboratory test 01/27/2015 N2N/CCD Import Basophils # (Auto) 0.04 0.0- 0.1 finding Basophils (%) (Auto) 0.4 0.0-1.1 Eosinophils # (Auto) 0.25 0.0-0.5 Eosinophils (%) (Auto) 2.5 0.0-6.6 Lymphocytes # (Auto) 2.59 1.8-7.0 Lymphocytes (%) (Auto) 25.4 17.0-46.1 Monocytes # (Auto) 0.71 0.3-0.9 Monocytes (%) (Auto) 7.0 4.3-13.2 Neutrophils # (Auto) 6.59 1.0-7.0 Neutrophils (%) (Auto) 64.7 40.4-72.8 RDW Coefficient of Variation 14.3 11.7-14.4 Red Cell Distribution Width 45.1 3-47 Sodium Level 139 136-145 Laboratory test 01/27/2015 [facility] Urine HCG NEGATIVE Negative [address] (Qualitative) [place] [address] [phone] Urinalysis With 01/27/2015 [facility] Urine Color STRAW Yellow Microscopic [address] [place] [address] [phone] Urine Clarity CLEAR Clear Urine Glucose - Dipstick NEGATIVE mg/dL Negative Urine Bilirubin - Dipstick NEGATIVE Negative Urine Ketone NEGATIVE mg/dL Negative Urine Specific [place] 1.010 1.010-1.030 Urine Blood SMALL High Negative Urine PH 6.0 Low 6.5-7.5 Urine Protein - Dipstick NEGATIVE mg/dL Negative Urine Urobilinogen - Dipstick 0.2 E.U./dL 0.2-1.0 Urine Nitrite - Dipstick NEGATIVE Negative Urine Leuk Esterase NEGATIVE Negative Urine RBC 0-2 rbc/hpf 0-2 Urine WBC 0-2 wbc/hpf 0-7 Urine Epithelial Cells FEW NONESEEN/lpf Urine Bacteria VERY FEW NONESEEN Laboratory test 01/27/2015 [facility] Urine Screen See Note 33 finding [address] [place] [address] [phone] Laboratory test 01/27/2015 N2N/CCD Import Urine Bilirubin Negative Negative finding Urine Glucose (Ua) Negative Negative Urine Ketones Negative Negative Urine Leukocyte Esterase Negative Negative Urine Nitrite Negative Negative Urine Protein Negative Negative Urine Urobilinogen 0.2 0.2-1.0 CBS W/Automated Diff 11/24/2014 [facility] White Blood 9.2 K/uL 3.1-10.7 [address] [place] [address] [phone] Red Blood Count 4.52 M/uL 3.90-5.40 Hemoglobin 13.1 gm/dL 11.6-15.8 Hematocrit 40.5 % 36.0-46.1 Mean Cell Volume 89.6 fl 80.9-99.0 Mean Corpuscular HGB 29.0 pg 25.9-32.7 Mean Corpuscular HGB Conc 32.3 g/dL 30.8-34.3 Platelet Count 407 K/uL High 155-360 Red Cell Distri Width SD 44.2 fl 3-47 Red Cell Distri Width %CV 13.9 % 11.7-14.4 Mean Platelet Volume 9.1 fL 8.9-12.4 Neut% 86.1 % High 40.4-72.8 Lymph % 11.5 % Low 17.0-46.1 Obion % 2.0 % Low 4.3-13.2 Eo% 0.1 % 0.0-6.6 Bas% 0.3 % 0.0-1.1 Neut# 7.94 K/uL High 1.0-7.0 Lymph # 1.06 K/uL Low 1.8-7.0 Obion # 0.18 K/uL Low 0.3-0.9 Eos # 0.01 K/uL 0.0-0.5 Baso # 0.03 K/uL 0.0-0.1 Laboratory test 11/24/2014 [facility] Thyroid Stim 0.46 uIU/mL 0.36-3.[address] [place] [address] [phone] Basic Metabolic 11/24/2014 [facility] Glucose 138 mg/dL High 74-[address] [place] [address] [phone] BUN 14 mg/dL 7-18 Creatinine 0.9 mg/dL 0.6-1.3 Glom Filtration Rate, Estimate >60 mL/min >60 If >60 mL/min >60 34 BUN/Creat 15.5 ratio Sodium 137 mmol/L 136-145 Potassium 4.2 mmol/L 3.5-5.1 Chloride 105 mmol/L 98-107 Carbon Dioxide 24 mmol/L 21-32 Anion Gap 8 mEq/L 8-16 Calcium 9.0 mg/dL 8.5-10.1 Allergens,Zone 1 11/24/2014 [facility] mRast Class (Text See Note [address] Only) [place] [address] [phone] D Pteronyssinus See Note kU/L 36 D Farinae Mite See Note kU/L 37 Cat Hair/Dander 0.32 ClassIkU/L High Dog Hair/Dander See Note kU/L 38 Bluegrass,[place] See Note kU/L 39 Bermuda Grass See Note kU/L 40 Bahia Grass See Note kU/L 41 Cockroach,[place]ander See Note kU/L 42 Penicillium Not See Note kU/L 43 Cladosporium Herbarum See Note kU/L 44 Apergillis Fumigatus Ige See Note kU/L 45 Mucor Racemosus See Note kU/L 46 Alternaria Tenuis See Note kU/L 47 Stemphylium Bot See Note kU/L 48 Birch,White See Note 49 [place],White See Note kU/L 50 Elm,[place]ander (White) See Note kU/L 51 John,White See Note kU/L 52 Hazelnut Tree See Note kU/L 53 [place],White See Note kU/L 54 [place],White See Note kU/L 55 [place] See Note kU/L 56 Ragweed,Short/ See Note kU/L 57 Mugwort See Note kU/L 58 Plantain,Japanese See Note kU/L 59 Pigweed,Rough See Note kU/L 60 Sheep [place] (DO See Note kU/L 61 Nettle See Note kU/L 62 Maple/Abernathy Ige T001 See Note 63 Laboratory test 11/24/2014 N2N/CCD Import Allergen Reference See Note 64 finding Ranges Basophils # (Auto) 0.03 0.0-0.1 Basophils (%) (Auto) 0.3 0.0-1.1 Eosinophils # (Auto) 0.01 0.0-0.5 Eosinophils (%) (Auto) 0.1 0.0-6.6 Lymphocytes # (Auto) 1.06 Low 1.8-7.0 Lymphocytes (%) (Auto) 11.5 Low 17.0-46.1 Monocytes # (Auto) 0.18 Low 0.3-0.9 Monocytes (%) (Auto) 2.0 Low 4.3-13.2 Neutrophils # (Auto) 7.94 High 1.0-7.0 Neutrophils (%) (Auto) 86.1 High 40.4-72.8 RDW Coefficient of Variation 13.9 11.7-14.4 Red Cell Distribution Width 44.2 3-47 Sodium Level 137 136-145 Laboratory test 11/11/2014 N2N/CCD Import Urine HCG Negative Negative 65 finding (Qualitative) Laboratory test 09/15/2014 N2N/CCD Import HCG,Serum(Qualitati Negative ( Negative) finding ve) Laboratory test 09/14/2014 N2N/CCD Import Bas% 0.6 % 0.0-1.1 finding Baso # 0.04 K/uL 0.0-0.1 Eo% 3.4 % 0.0-6.6 Eos # 0.24 K/uL 0.0-0.5 Hematocrit 37.4 % 36.0-46.1 Hemoglobin 12.6 gm/dL 11.6-15.8 Lipase 102 U/L 73-393 Lymph # 2.73 K/uL 0.8-3.4 Lymph % 38.9 % 17.0-46.1 Mean Cell Volume 89.3 fl 80.9-99.0 Mean Corpuscular HGB 30.1 pg 25.9-32.7 Mean Corpuscular HGB Conc 33.7 g/dL 30.8-34.3 Mean Platelet Volume 8.5 fL Low 8.9-12.4 Obion # 0.72 K/uL 0.3-0.9 Obion % 10.3 % 4.3-13.2 Neut# 3.28 K/uL 1.0-7.0 Neut% 46.8 % 40.4-72.8 Platelet Count 313 K/uL 155-360 Red Blood Count 4.19 M/uL 3.90-5.40 Red Cell Distri Width %CV 14.1 % 11.7-14.4 Red Cell Distri Width SD 45.6 fl 3-47 White Blood Count 7.0 K/uL 3.1-10.7 Comprehensive Metabolic Panel 09/14/2014 N2N/CCD Import Alb/Glob 0.6 ratio Albumin 2.9 g/dL Low 3.4-5.0 Alkaline Phosphatase 87 U/L 45-117 Anion Gap 10 mEq/L 8-16 BUN 10 mg/dL 7-18 BUN/Creat 12.5 ratio Bilirubin,Total 0.3 mg/dL 0.2-1.0 Calcium 8.3 mg/dL Low 8.5-10.1 Carbon Dioxide 28 mmol/L 21-32 Chloride 106 mmol/L 98-107 Creatinine 0.8 mg/dL 0.6-1.3 Globulin 4.5 g/dL High 1.9-4.3 Glom Filtration Rate, Estimate >60 mL/min >60 Glucose 83 mg/dL 74-106 If >60 mL/min >60 66 Potassium 4.0 mmol/L 3.5-5.1 SGPT/Alt 20 U/L 12-78 Sgot/Ast 13 U/L Low 15-37 67 Sodium 140 mmol/L 136-145 Total Protein 7.4 g/dL 6.4-8.2 Urine Screen 09/14/2014 N2N/CCD Import Urine Bilirubin - Negative Negative Dipstick Urine Blood Trace Negative Urine Clarity Clear Clear Urine Color Yellow Yellow Urine Glucose - Dipstick Negative mg/dL Negative Urine Ketone Negative mg/dL Negative Urine Leuk Esterase Negative Negative Urine Nitrite - Dipstick Negative Negative Urine PH 7.0 6.5-7.5 Urine Protein - Dipstick Negative mg/dL Negative Urine Specific [place] 1.020 1.010-1.030 Urine Urobilinogen - Dipstick 0.2 E.U./dL 0.2-1.0 Laboratory test 07/10/2014 N2N/Speakap Import Urine Culture See Note 68 finding Laboratory test 07/09/2014 N2N/CCD Import Urine HCG Negative Negative 69 finding (Qualitative) Urine Screen See Note 70 Urinalysis With 07/09/2014 N2N/CCD Import Urine Bacteria Few None Seen Microscopic Urine Bilirubin - Dipstick Negative Negative Urine Blood Small High Negative Urine Clarity Clear Clear Urine Color Yellow Yellow Urine Epithelial Cells Few None Seen /lpf Urine Glucose - Dipstick Negative mg/dL Negative Urine Ketone Negative mg/dL Negative Urine Leuk Esterase Negative Negative Urine Mucus Small None Seen Urine Nitrite - Dipstick Negative Negative Urine PH 6.0 Low 6.5-7.5 Urine Protein - Dipstick Negative mg/dL Negative Urine RBC 5-10 rbc/hpf 0-7 Urine Specific [place] >=1.030 1.010-1.030 Urine Urobilinogen - Dipstick 0.2 E.U./dL 0.2-1.0 Urine WBC 2-5 wbc/hpf 0-7 Laboratory test finding 07/09/2014 N2N/CCD Import Bas% 0.5 % 0.0-1.1 Baso # 0.04 K/uL 0.0-0.1 Eo% 3.7 % 0.0-6.6 Eos # 0.29 K/uL 0.0-0.5 Hematocrit 36.1 % 36.0-46.1 Hemoglobin 11.9 gm/dL 11.6-15.8 Lipase 142 U/L 73-393 Lymph # 3.12 K/uL 0.8-3.4 Lymph % 39.3 % 17.0-46.1 Mean Cell Volume 89.6 fl 80.9-99.0 Mean Corpuscular HGB 29.5 pg 25.9-32.7 Mean Corpuscular HGB Conc 33.0 g/dL 30.8-34.3 Mean Platelet Volume 8.9 fL 8.9-12.4 Obion # 0.59 K/uL 0.0-0.6 Obion % 7.4 % 4.3-13.2 Neut# 3.89 K/uL 1.0-7.0 Neut% 49.1 % 28.0-68.0 Platelet Count 338 K/uL 155-360 Red Blood Count 4.03 M/uL 3.90-5.40 Red Cell Distri Width %CV 13.4 % 11.7-14.4 Red Cell Distri Width SD 43.0 fl 3-47 White Blood Count 7.9 K/uL 3.1-10.7 Comprehensive Metabolic Panel 07/09/2014 N2N/CCD Import Alb/Glob 0.8 ratio Albumin 3.3 g/dL Low 3.4-5.0 Alkaline Phosphatase 92 U/L 45-117 Anion Gap 8 mEq/L 8-16 BUN 14 mg/dL 7-18 BUN/Creat 15.5 ratio Bilirubin,Total 0.2 mg/dL 0.2-1.0 Calcium 8.3 mg/dL Low 8.5-10.1 Carbon Dioxide 28 mmol/L 21-32 Chloride 108 mmol/L High 98-107 Creatinine 0.9 mg/dL 0.6-1.3 Globulin 4.2 g/dL 1.9-4.3 Glom Filtration Rate, Estimate >60 mL/min >60 Glucose 100 mg/dL 74-106 If >60 mL/min >60 71 Potassium 3.8 mmol/L 3.5-5.1 SGPT/Alt 19 U/L 12-78 Sgot/Ast 12 U/L Low 15-37 72 Sodium 140 mmol/L 136-145 Total Protein 7.5 g/dL 6.4-8.2 CBC 04/18/2014 N2N/CCD Import Hematocrit 31.7 % Low 36.0-46.1 Hemoglobin 10.5 gm/dL Low 11.6-15.8 Mean Cell Volume 94.3 fl 80.9-99.0 Mean Corpuscular HGB 31.3 pg 25.9-32.7 Mean Corpuscular HGB Conc 33.1 g/dL 30.8-34.3 Mean Platelet Volume 8.6 fL Low 8.9-12.4 Platelet Count 300 K/uL 155-360 Red Blood Count 3.36 M/uL Low 3.90-5.40 Red Cell Distri Width %CV 13.3 % 11.7-14.4 White Blood Count 17.2 K/uL High 3.1-10.7 Comprehensive Metabolic Panel 04/18/2014 N2N/CCD Import Alb/Glob 0.6 ratio Albumin 2.6 g/dL Low 3.5-5.0 Alkaline Phosphatase 127 U/L 50-136 Anion Gap 12 mEq/L 8-16 BUN 8 mg/dL 5-23 BUN/Creat 11.4 ratio Bilirubin,Total 0.5 mg/dL 0.2-1.2 Calcium 8.7 mg/dL 8.5-10.1 Carbon Dioxide 25 mEq/L 18-29 Chloride 107 mmol/L 98-107 Creatinine 0.7 mg/dL 0.5-1.4 Globulin 4.3 g/dL 1.9-4.3 Glom Filtration Rate, Estimate >60 mL/min >60 Glucose 88 mg/dL 76-115 If >60 mL/min >60 73 Potassium 3.7 mmol/L 3.5-5.1 SGPT/Alt 18 U/L Low 30-65 Sgot/Ast 14 U/L Low 16-40 Sodium 140 mmol/L 136-145 Total Protein 6.9 g/dL 6.3-8.0 Laboratory test 04/18/2014 N2N/CCD Import Culture If Indicated See Note 74 finding Comment Urine Culture See Note 75 Urine Screen See Note 76 Urinalysis With 04/18/2014 N2N/CCD Import Urine Bacteria Moderate None High Microscopic Seen Urine Bilirubin - Dipstick Negative Negative Urine Blood Large High Negative Urine Clarity Cloudy Clear Urine Color Yellow Yellow Urine Epithelial Cells Moderate None Seen /lpf 77 Urine Glucose - Dipstick Negative mg/dL Negative Urine Ketone Negative mg/dL Negative Urine Leuk Esterase Moderate High Negative Urine Nitrite - Dipstick Negative Negative Urine PH 6.5 6.5-7.5 Urine Protein - Dipstick Negative mg/dL Negative Urine RBC 10-20 rbc/hpf High 0-7 Urine Specific [place] 1.010 1.010-1.030 Urine Urobilinogen - Dipstick 0.2 E.U./dL 0.2-1.0 Urine WBC 20-30 wbc/hpf High 0-7 Laboratory test 04/13/2014 N2N/CCD Import Rapid Plasma Nonreactive 78 finding Reagin Nonreactive CBC 04/13/2014 N2N/CCD Import Hematocrit 36.4 % 36.0-4 6.1 Hemoglobin 12.3 gm/dL 11.6-15.8 Mean Cell Volume 91.9 fl 80.9-99.0 Mean Corpuscular HGB 31.1 pg 25.9-32.7 Mean Corpuscular HGB Conc 33.8 g/dL 30.8-34.3 Mean Platelet Volume 9.7 fL 8.9-12.4 Platelet Count 299 K/uL 155-360 Red Blood Count 3.96 M/uL 3.90-5.40 Red Cell Distri Width %CV 12.8 % 11.7-14.4 White Blood Count 11.0 K/uL High 3.1-10.7 Type And Screen 04/13/2014 N2N/CCD Import Antibody Screen Negative Negative Patient Blood Type A Pos Laboratory test 03/06/2014 N2N/CCD Import Culture If Indicated See Note 79 finding Comment Urine Culture See Note 80 Urine Screen See Note 81 Urinalysis With 03/06/2014 N2N/CCD Import Urine Bacteria Moderate None High Microscopic Seen Urine Bilirubin - Dipstick Negative Negative Urine Blood Moderate High Negative Urine Calcium Oxalate Crystals Few None Seen Urine Clarity Clear Clear Urine Color Yellow Yellow Urine Epithelial Cells Many None Seen /lpf 82 Urine Glucose - Dipstick Negative mg/dL Negative Urine Ketone Negative mg/dL Negative Urine Leuk Esterase Small High Negative Urine Mucus Small None Seen Urine Nitrite - Dipstick Negative Negative Urine PH 6.0 Low 6.5-7.5 Urine Protein - Dipstick Negative mg/dL Negative Urine RBC 5-10 rbc/hpf 0-7 Urine Specific [place] 1.025 1.010-1.030 Urine Urobilinogen - Dipstick 1.0 E.U./dL 0.2-1.0 Urine WBC 5-10 wbc/hpf 0-7 Laboratory test 02/26/2014 N2N/CCD Import Urine Collection Time 24 Hours finding Urine TP Total (mg/24hr) 154 [id number] High Urine Total Protein Conc 10.9 mg/dL Urine Total Volume 1410 mL Laboratory test finding 02/10/2014 N2N/CCD Import Glucagon, Plasma See Note 83 Glucose See Note 84 Urine Culture See Note 85 Vaginal Strep Screen See Note 86 Chlamydia/GC Berna 02/10/2014 N2N/CCD Import Chlamydia Negative Negative Trachomatis, Berna Neisseria Gonorrhoeae, Berna Negative Negative Please note: See Note 87 Glycohemoglobin A1c 02/10/2014 N2N/CCD Import Glycohemoglobin (A1c) 5.4 % 4.8-6.0 88 eAG 108 mg/dL Hemoglobin/Hematocrit 01/22/2014 N2N/CCD Import Hematocrit 35.8 % Low 36.0-46.1 Hemoglobin 12.1 gm/dL 11.6-15.8 Laboratory test 01/22/2014 N2N/CCD Import 1 HR Glucose,Post 146 mg/dL High -138 89 finding Glucola 1 Hour Urine Glucose See Note % Negative 90 1 Hour Urine Ketone See Note Negative 91 Laboratory test 12/24/2013 N2N/CCD Import Urine Screen See Note 92 finding Urinalysis With 12/24/2013 N2N/CCD Import Urine Bacteria Few None Seen Microscopic Urine Bilirubin - Dipstick Negative Negative Urine Blood Moderate High Negative Urine Clarity Clear Clear Urine Color Yellow Yellow Urine Epithelial Cells Moderate None Seen /lpf 93 Urine Glucose - Dipstick Negative mg/dL Negative Urine Ketone Negative mg/dL Negative Urine Leuk Esterase Small High Negative Urine Nitrite - Dipstick Negative Negative Urine PH 6.5 6.5-7.5 Urine Protein - Dipstick Negative mg/dL Negative Urine RBC 5-10 rbc/hpf 0-7 Urine Specific [place] 1.010 1.010-1.030 Urine Urobilinogen - Dipstick 0.2 E.U./dL 0.2-1.0 Urine WBC 2-5 wbc/hpf 0-7 Laboratory test 11/11/2013 N2N/CCD Import Urine Culture See Note 94 finding CBC 03/30/2013 [facility] White Blood 6.8 K/uL 3.1-10.[address] [place] [address] [phone] Red Blood Count 3.95 M/uL 3.90-5.40 Hemoglobin 12.0 gm/dL 11.6-15.8 Hematocrit 36.7 % 36.0-46.1 Mean Cell Volume 92.9 fl 80.9-99.0 Mean Corpuscular HGB 30.4 pg 25.9-32.7 Mean Corpuscular HGB Conc 32.7 g/dL 30.8-34.3 Platelet Count 374 K/uL High 155-360 Red Cell Distri Width %CV 11.8 % 11.7-14.4 Mean Platelet Volume 8.7 fL Low 8.9-12.4 Liver Function Tests 03/29/2013 [facility] Total Protein 7.3 g/dL 6.3-8.0 [address] [place] [address] [phone] Albumin 3.5 g/dL 3.5-5.0 Globulin 3.8 g/dL 1.9-4.3 Alb/Glob 0.9 ratio Bilirubin,Total 0.3 mg/dL 0.2-1.2 Bilirubin,Direct < 0.1 mg/dL Low 0.1-0.4 Bilirubin,Indirect 0.2 mg/dL 0.0-0.9 Sgot/Ast 12 U/L Low 16-40 SGPT/Alt 19 U/L Low 30-65 Alkaline Phosphatase 106 U/L 50-136 Basic Metabolic Panel 03/29/2013 [facility] Glucose 95 mg/dL 76-115 [address] [place] [address] [phone] BUN 14 mg/dL 5-23 Creatinine 0.9 mg/dL 0.5-1.4 Glom Filtration Rate, Estimate >60 mL/min >60 If >60 mL/min >60 95 BUN/Creat 15.5 ratio Sodium 140 mmol/L 136-145 Potassium 3.7 mmol/L 3.5-5.1 Chloride 105 mmol/L 98-107 Carbon Dioxide 29 mEq/L 18-29 Anion Gap 10 mEq/L 8-16 Calcium 8.9 mg/dL 8.5-10.1 Laboratory test finding 03/29/2013 [facility] Lipase 103 U/L 28-380 [address] [place] [address] [phone] HCG Serum, Qualitative NEGATIVE CBC W/Automated Diff 03/29/2013 [facility] White Blood 8.0 K/uL 3.1-10.7 [address] [place] [address] [phone] Red Blood Count 4.22 M/uL 3.90-5.40 Hemoglobin 13.2 gm/dL 11.6-15.8 Hematocrit 38.4 % 36.0-46.1 Mean Cell Volume 91.0 fl 80.9-99.0 Mean Corpuscular HGB 31.3 pg 25.9-32.7 Mean Corpuscular HGB Conc 34.4 g/dL High 30.8-34.3 Platelet Count 366 K/uL High 155-360 Red Cell Distri Width SD 38.4 fl 3-47 Red Cell Distri Width %CV 11.8 % 11.7-14.4 Mean Platelet Volume 8.4 fL Low 8.9-12.4 Neut% 42.5 % 28.0-68.0 Lymph % 44.0 % 17.0-46.1 Obion % 8.5 % 4.3-13.2 Eo% 4.1 % 0.0-6.6 Bas% 0.9 % 0.0-1.1 Neut# 3.42 K/uL 1.0-7.0 Lymph # 3.54 K/uL High 0.8-3.4 Obion # 0.68 K/uL High 0.0-0.6 Eos # 0.33 K/uL 0.0-0.5 Baso # 0.07 K/uL 0.0-0.1 Urinalysis With 03/29/2013 [facility] Urine Color YELLOW Yellow Microscopic [address] [place] [address] [phone] Urine Clarity CLEAR Clear Urine Glucose - Dipstick NEGATIVE mg/dL Negative Urine Bilirubin - Dipstick NEGATIVE Negative Urine Ketone NEGATIVE mg/dL Negative Urine Specific [place] >=1.030 1.010-1.030 Urine Blood MODERATE High Negative Urine PH 6.0 Low 6.5-7.5 Urine Protein - Dipstick NEGATIVE mg/dL Negative Urine Urobilinogen - Dipstick 0.2 E.U./dL 0.2-1.0 Urine Nitrite - Dipstick POSITIVE High Negative Urine Leuk Esterase NEGATIVE Negative Urine RBC 0-2 rbc/hpf 0-7 Urine WBC 0-2 wbc/hpf 0-7 Urine Epithelial Cells FEW NONESEEN/lpf Urine Bacteria FEW NONESEEN Urine Mucus LARGE NONESEEN Urine Amorph Sediment SMALL Negative Laboratory test 03/29/2013 [facility] Culture If See Note [address] [place] [place] [address] [phone] Urine Screen See Note 97 Urine Culture See Note 98 Comprehensive Metabolic Panel 12/19/2012 N2N/CCD Import Alb/Glob 1.0 ratio Albumin 3.7 g/dL 3.5-5.0 Alkaline Phosphatase 99 U/L 50-136 Anion Gap 14 mEq/L 8-16 BUN 9 mg/dL 5-23 BUN/Creat 11.2 ratio Bilirubin,Total 0.4 mg/dL 0.2-1.2 Calcium 9.0 mg/dL 8.5-10.1 Carbon Dioxide 25 mEq/L 18-29 Chloride 106 mmol/L 98-107 Creatinine 0.8 mg/dL 0.5-1.4 Globulin 3.8 g/dL 1.9-4.3 Glom Filtration Rate, Estimate >60 mL/min >60 Glucose 110 mg/dL 76-115 If >60 mL/min >60 99 Potassium 3.6 mmol/L 3.5-5.1 SGPT/Alt 19 U/L Low 30-65 Sgot/Ast 14 U/L Low 16-40 Sodium 141 mmol/L 136-145 Total Protein 7.5 g/dL 6.3-8.0 Urinalysis With 12/19/2012 N2N/CCD Import Urine Bacteria Very Few None Microscopic Seen Urine Bilirubin - Dipstick Negative Negative Urine Blood Small High Negative Urine Clarity Clear Clear Urine Color Yellow Yellow Urine Epithelial Cells Few None Seen /lpf Urine Glucose - Dipstick Negative mg/dL Negative Urine Ketone Negative mg/dL Negative Urine Leuk Esterase Trace High Negative Urine Nitrite - Dipstick Negative Negative Urine PH 8.0 High 6.5-7.5 Urine Protein - Dipstick Negative mg/dL Negative Urine RBC 2-5 rbc/hpf 0-7 Urine Specific [place] 1.010 1.010-1.030 Urine Urobilinogen - Dipstick 0.2 E.U./dL 0.2-1.0 Urine WBC 2-5 wbc/hpf 0-7 Laboratory test 12/19/2012 N2N/CCD Import Celiac Interpretation See Comment 100 finding Immunoglobulin A 263 mg/dL 61 - 356 TSH (Thyroid Stimulating Horm) 1.65 miu/mL 0.34-5.60 Tissue Transglutaminase IgA Ab <1.2 U/mL 101 CBC Auto Diff 12/19/2012 N2N/CCD Import Abs Basophils 0 10^3/uL 0-0.2 Abs Eosinophils 0.2 10^3/uL 0-0.6 Abs Lymphocytes 2.3 10^3/uL 1.0-4.8 Abs Monocytes 0.7 10^3/uL 0-0.8 Abs Neutrophils 3.6 10^3/uL 1.5-7.7 Abs Nucleated RBC 0.01 10^3/uL Basophil % 0.4 % 0-2 Eosinophil % 3.1 % 0-6 Granulocyte % 52.6 % 38-83 Hematocrit 41 % 35-47 Hemoglobin 14.4 g/dL 12.0-16.0 Lymphocyte % 34.1 % 25-47 Mean Corpuscular HGB Conc 35 g/dL 31-36 Mean Corpuscular Hemoglobin 32 pg High 27-31 Mean Corpuscular Volume 91 fL 80-97 Mean Platelet Volume 7 um3 Low 7.4-10.4 Monocyte % 9.8 % High 1-9 Nucleated Red Blood Cells % 0.1 Platelet Count 338 10^3/uL 150-450 Red Blood Count 4.54 10^6/uL 4.0-5.4 Red Cell Distribution Width 12 % 10.5-15 White Blood Count 6.8 10^3/uL 4.8-10.8 Comp Metabolic Panel 12/19/2012 N2N/CCD Import Albumin 3.8 g/dL 3.6-5.4 Albumin/Globulin Ratio 1.3 1-3 Alkaline Phosphatase 94 U/L 50-176 Alt 16 U/L 14-54 Anion Gap 8.0 mmol/L 2-11 Ast 18 U/L 12-42 BUN/Creatinine Ratio 13.3 8-20 Blood Urea Nitrogen 8 mg/dL 6-24 Calcium 9.2 mg/dL 8.1-9.9 Chloride 102 mmol/L 101-111 Co2 Carbon Dioxide 25.0 mmol/L 22-32 Creatinine 0.60 mg/dL 0.50-1.40 Egfr 165.6 >60 102 Egfr Non- 128.8 >60 Globulin 2.9 g/dL 2-4 Glucose 79 mg/dL 70-100 Potassium 4.1 mmol/L 3.5-5.0 Sodium 135 mmol/L 133-145 Total Bilirubin 0.9 mg/dL 0.4-1.5 Total Protein 6.7 g/dL 6.2-8.1 Urine Culture And 12/19/2012 N2N/CCD Import Urine Culture (See Note) 103 Sensitivities Laboratory test 12/19/2012 N2N/CCD Import Lipase 75 U/L 28-380 finding Urine HCG (Qualitative) Negative Negative 104 Urine Screen See Note 105 CBC 12/19/2012 N2N/CCD Import Hematocrit 40.7 % 36.0-46.1 Hemoglobin 13.9 gm/dL 11.6-15.8 Mean Cell Volume 90.4 fl 80.9-99.0 Mean Corpuscular HGB 30.9 pg 25.9-32.7 Mean Corpuscular HGB Conc 34.2 g/dL 30.8-34.3 Mean Platelet Volume 8.7 fL Low 8.9-12.4 Platelet Count 352 K/uL 155-360 Red Blood Count 4.50 M/uL 3.90-5.40 Red Cell Distri Width %CV 12.0 % 11.7-14.4 White Blood Count 9.6 K/uL 3.1-10.7 1 ACTIVE LABOR 2 Performed at: [facility] [id number] Knurling Machine Operator: Kyle Hernandez MD, Phone: [phone] SENT BY [employer],POSITIVE PREG TEST,BLEEDING 4 Approximate Gestational Age and Total BHCG Range: 0.2 - 1 Week........................5-50 mIU/mL 1 - 2 Weeks.....................50-500 mIU/mL 2 - 3 Weeks..................100-5,000 mIU/mL 3 - 4 Weeks.................500-10,000 mIU/mL 4 - 5 Weeks...............1,000-50,000 mIU/mL 5 - 6 Weeks.............10,000-100,000 mIU/mL 6 - 8 Weeks.............15,000-200,000 mIU/mL 2 - 3 Months............10,000-100,000 mIU/mL 5 URINE, CLEAN CATCH 6 [id number] 7 SEE RESULT BELOW Name: JOHNXIAO : [address]: Reji Maldonado MD Acct: [id number] Unit: [id number] AGE: 21 Location: [facility] Re05/07/17 SEX: F Status: DEP ER SPEC: [id number] HEMANTH: 05/07/[address]: Nissa MURPHY REQ: [id number] RECD: 05/07/17 STATUS: JIMENA BEASLEY DR: [facility] Ángela Esqueda MD _ SOURCE: URINE SPDESC: ORDERED: Urine Culture COMMENTS: [id number] Procedure Result Reported Site Urine Culture Final 05/08/17- 1309 ML No growth of clinically significant organisms * ML - MAIN LAB (PSC1) . END OF REPORT * ML=Testing performed at Main Lab DEPARTMENT OF PATHOLOGY, [address] [place] [address] Gordy Ornelas M.D. Director [facility] # [id number] 8 [id number] 9 SEE RESULT BELOW Name: XIAO LOPEZ : [address]: Reji Maldonado MD Acct: [id number] Unit: [id number] AGE: 20 Location: [facility] Re03/21/16 SEX: F Status: DEP ER SPEC: [id number] HEMANTH: 03/21/16-[address]: Reji Maldonado MD REQ: [id number] RECD: 03/22/16 STATUS: COMP [facility] DR: [facility] Sera Paez MD _ SOURCE: URINE [facility]: ORDERED: Urine Culture COMMENTS: [id number] Procedure Result Reported Site Urine Culture Final 03/23/16- 1318 ML No growth of clinically significant organisms * ML - MAIN LAB (PSC1) . END OF REPORT * ML=Testing performed at Main Lab DEPARTMENT OF PATHOLOGY, [address] [place] [address] Gordy Ornelas M.D. Director [facility] # [id number] 10 SEE RESULT BELOW Name: XIAO LOPEZ : [address]: Kyle Porter MD Acct: [id number] Unit: [id number] AGE: 20 Location: ED Re12/31/15 SEX: F Status: DEP ER SPEC: [id number] HEMANTH: 12/31/15-[address]: Kyle Porter MD REQ: [id number] RECD: 12/31/15 STATUS: COMP ERICKHR DR: [facility], Lab Sera Paez MD _ SOURCE: URINE SPDESC: ORDERED: Urine Culture Procedure Result Reported Site Urine Culture Final 01/01/16- 1612 ML No growth of clinically significant organisms * ML - MAIN LAB (PSC1) . END OF REPORT * ML=Testing performed at Main Lab DEPARTMENT OF PATHOLOGY, [address] [place] [address] Gordy Ornelas M.D. Director [facility] # [id number] 11 Because ethnic data is not always readily available, this report includes an eGFR for both -Americans and non- Americans. The National Kidney Disease Education Program (NKDEP) does not endorse the use of the MDRD equation for patients that are not between the ages of 18 and 70, are , have extremes of body size, muscle mass, or nutritional status, or are non- or non-. According to the National Kidney Foundation, irrespective of diagnosis, the stage of the disease is based on the level of kidney function: Stage Description GFR(mL/min/1.73 m(2)) 1 Kidney damage with normal or decreased GFR 90 2 Kidney damage with mild decrease in GFR 60-89 3 Moderate decrease in GFR 30-59 4 Severe decrease in GFR 15-29 5 Kidney failure <15 (or dialysis) 12 Unable to report test result due to hemolysis. 13 Unable to report test result due to hemolysis. 14 CALLED @ 1409 ABOUT HAVING A LAWRENCE TOP TUBE SENT. 15 Acute inflammation: >10.00 16 <5.0 Negative 5.0 - 25.0 Indeterminate (Repeat testing recommended after 72 hours) >25.0 Positive Perimenopausal women can display HCG levels of up to 20 mIU/mL 17 [facility] Severe Sepsis and Septic Shock Management Bundle Measure requires all lactic acids initially measuring >2.0 mmol/L be repeated. 18 [id number] 19 SEE RESULT BELOW Name: XIAO LOPEZ : [address]: Sherie Downs Acct: [id number] Unit: [id number] AGE: 20 Location: [facility] Re12/13/15 SEX: F Status: DEP ER SPEC: [id number] HEMANTH: 12/13/15-[address] [facility] [address]: Sherie Davenport DO REQ: [id number] RECD: 12/14/15 STATUS: JIMENA BEASLEY DR: [facility], Lab Sera Paez MD _ SOURCE: URINE SPDESC: ORDERED: Urine Culture COMMENTS: [id number] Procedure Result Reported Site Urine Culture Final 12/15/15- 1332 ML No growth of clinically significant organisms * ML - MAIN LAB ([facility]) . END OF REPORT * ML=Testing performed at Main Lab DEPARTMENT OF PATHOLOGY, [address] [place] [address] Gordy Ornelas M.D. Director [facility] # [id number] 20 SEE RESULT BELOW Name: XIAO LOPEZ : [address]: Jennifer Oconnor MD Acct: [id number] Unit: [id number] AGE: 20 Location: [facility] Re11/19/15 SEX: F Status: DEP ER SPEC: [id number] HEMANTH: 11/19/[address] [facility] [address]: Jennifer Oconnor MD REQ: [id number] RECD: 11/20/15 STATUS: JIMENA BEASLEY DR: [facility], Lab Sera Paez MD _ SOURCE: URINE SPDESC: ORDERED: Urine Culture Procedure Result Reported Site Urine Culture Final 11/21/15- 1229 ML No growth of clinically significant organisms * ML - MAIN LAB ([facility]) . END OF REPORT * ML=Testing performed at Main Lab DEPARTMENT OF PATHOLOGY, [address] [place] [address] Gordy Ornelas M.D. Director [facility] # [id number] 21 A negative result for either C. trachomatis and/or N. gonorrhoeae does not preclued an infection because results are dependent on adequate specimen collection, absence of inhibitors, and sufficient DNA to be detected. A negative result for either C. trachomatis and/or N. gonorrhoeae does not preclued an infection because results are dependent on adequate specimen collection, absence of inhibitors, and sufficient DNA to be detected. 22 SEE RESULT BELOW Name: XIAO OLPEZ : [address]: Sera Paez MD Acct: [id number] Unit: [id number] AGE: 20 Location: [facility] Re09/10/15 SEX: F Status: REG REF SPEC: [id number] HEMANTH: 09/10/15-[address] [facility] [address]: Sera Paez MD REQ: [id number] RECD: 09/11/15-7 STATUS: ARMOND BEASLEY DR: [facility], Lab _ ORDERED: IMAGE ANALYSIS, PAP SM PATH REV FINAL DIAGNOSIS Negative for Intraepithelial lesion or Malignancy Shift in devonte suggestive of bacterial vaginosis Reactive cellular changes associated with Inflammation (includes typical repair) A. Ectocervical/Endocervical Specimen Adequacy: Satisfactory of evaluation Transformation zone component identified Patient Information: HPV: Thin Layer Pap Test w/reflex to high risk HPV RNA testing when ASCUS Actual Specimen Date: 09/10/15 Last Menstrual Date: 09/09/15 ?: N Post Menopausal?: N Hysterectomy?: N Signed (signature on file) Gordy Ornelas MD 1551 This Pap test was evaluated with the assistance of the [employer] Test Imaging System. Due to cytologic findings at the link wire fabric machine operator microscope, comprehensive manual rescreening by a Machine Setter Automatic may be required. The Pap Smear is a screening test designed to aid in the detection of premalignant and malignant conditions of the uterine cervix. It is not a diagnostic procedure and should not be used as the sole means of detecting cervical cancer. Both false- positive and false- negative reports do occur. Depending on your risk status, a Pap smear should be obtained and evaluated every 1-3 years. END OF REPORT * ML=Testing performed at Main Lab DEPARTMENT OF PATHOLOGY, [address] [place] [address] Gordy Ornelas M.D. Director [facility] # [id number] Report may be viewed in PCI: Medical Record Forms -> LAB-CONTRACTING EXECUTIVE Testing referred to: [place] [address] [facility] * [place] [address] Ph.#. [phone] A negative result for either C. trachomatis and/or N. gonorrhoeae does not preclued an infection because results are dependent on adequate specimen collection, absence of inhibitors, and sufficient DNA to be detected. A negative result for either C. trachomatis and/or N. gonorrhoeae does not preclued an infection because results are dependent on adequate specimen collection, absence of inhibitors, and sufficient DNA to be detected. 25 06/23/15 LAB.DWM NO URINE SENT 26 Values >10 mIU/ML considered IMMUNE 27 Antibodies to HCV not detected; does not exclude early acute HCV infection. 28 PATIENT DEPARTED ER. NO URINE RECEIVED. 29 FIRST MORNING SPECIMENS GENERALLY CONTAIN THE HIGHEST CONCENTRATION OF HCG AND ARE RECOMMENDED FOR EARLY DETECTION OF . 30 Note: Persistent reduction for 3 months or more in an eGFR <60 mL/min/1.73 m2 defines CKD. Patients with eGFR values >/=60 mL/min/1.73 m2 may also have CKD if evidence of persistent proteinuria is present. The original MDRD equation for estimated GFR is not valid for patients less than 18 years of age. Additional information may be found at www.kdoqi.org. 31 Values below the stated reference ranges of AST and ALT can be seen in normal populations. Clinical correlation is suggested. 32 FIRST MORNING SPECIMENS GENERALLY CONTAIN THE HIGHEST CONCENTRATION OF HCG AND ARE RECOMMENDED FOR EARLY DETECTION OF . 33 01/27/15 LAB.MPK Deleted by Reflex Group [facility] [place] 34 Note: Persistent reduction for 3 months or more in an eGFR <60 mL/min/1.73 m2 defines CKD. Patients with eGFR values >/=60 mL/min/1.73 m2 may also have CKD if evidence of persistent proteinuria is present. The original MDRD equation for estimated GFR is not valid for patients less than 18 years of age. Additional information may be found at www.kdoqi.org. 35 Levels of Specific IgE Class Description of Class ----- < 0.10 0 Negative 0.10 - 0.31 0/I Equivocal/Low 0.32 - 0.55 I Low 0.56 - 1.40 II Moderate 1.41 - 3.90 III High 3.91 - 19.00 IV Very High 19.01 - 100.00 V Very High >100.00 Very High 36 Test not performed Due to technical problems in testing, a valid result was not obtained. The remaining specimen was not sufficient for repeat testing. 37 Test not performed Due to technical problems in testing, a valid result was not obtained. The remaining specimen was not sufficient for repeat testing. 38 Test not performed Due to technical problems in testing, a valid result was not obtained. The remaining specimen was not sufficient for repeat testing. 39 Test not performed Due to technical problems in testing, a valid result was not obtained. The remaining specimen was not sufficient for repeat testing. 40 Test not performed Due to technical problems in testing, a valid result was not obtained. The remaining specimen was not sufficient for repeat testing. 41 Test not performed Due to technical problems in testing, a valid result was not obtained. The remaining specimen was not sufficient for repeat testing. 42 Test not performed Due to technical problems in testing, a valid result was not obtained. The remaining specimen was not sufficient for repeat testing. 43 Test not performed Due to technical problems in testing, a valid result was not obtained. The remaining specimen was not sufficient for repeat testing. 44 Test not performed Due to technical problems in testing, a valid result was not obtained. The remaining specimen was not sufficient for repeat testing. 45 Test not performed Due to technical problems in testing, a valid result was not obtained. The remaining specimen was not sufficient for repeat testing. 46 Test not performed Due to technical problems in testing, a valid result was not obtained. The remaining specimen was not sufficient for repeat testing. 47 Test not performed Due to technical problems in testing, a valid result was not obtained. The remaining specimen was not sufficient for repeat testing. 48 Test not performed Due to technical problems in testing, a valid result was not obtained. The remaining specimen was not sufficient for repeat testing. 49 Test not performed Due to technical problems in testing, a valid result was not obtained. The remaining specimen was not sufficient for repeat testing. 50 Test not performed Due to technical problems in testing, a valid result was not obtained. The remaining specimen was not sufficient for repeat testing. 51 Test not performed Due to technical problems in testing, a valid result was not obtained. The remaining specimen was not sufficient for repeat testing. 52 Test not performed Due to technical problems in testing, a valid result was not obtained. The remaining specimen was not sufficient for repeat testing. 53 Test not performed Due to technical problems in testing, a valid result was not obtained. The remaining specimen was not sufficient for repeat testing. 54 Test not performed Due to technical problems in testing, a valid result was not obtained. The remaining specimen was not sufficient for repeat testing. 55 Test not performed Due to technical problems in testing, a valid result was not obtained. The remaining specimen was not sufficient for repeat testing. 56 Test not performed Due to technical problems in testing, a valid result was not obtained. The remaining specimen was not sufficient for repeat testing. 57 Test not performed Due to technical problems in testing, a valid result was not obtained. The remaining specimen was not sufficient for repeat testing. 58 Test not performed Due to technical problems in testing, a valid result was not obtained. The remaining specimen was not sufficient for repeat testing. 59 Test not performed Due to technical problems in testing, a valid result was not obtained. The remaining specimen was not sufficient for repeat testing. 60 Test not performed Due to technical problems in testing, a valid result was not obtained. The remaining specimen was not sufficient for repeat testing. 61 Test not performed Due to technical problems in testing, a valid result was not obtained. The remaining specimen was not sufficient for repeat testing. 62 Test not performed Due to technical problems in testing, a valid result was not obtained. The remaining specimen was not sufficient for repeat testing. 63 Test not performed Due to technical problems in testing, a valid result was not obtained. The remaining specimen was not sufficient for repeat testing. Due to technical problems in testing, a valid result was not obtained. The remaining specimen was not sufficient for repeat testing. TEST: [id number] PANEL Allergens, Zone 1 (Partial) Test(s) [id number] Cockroach, [place]ander; [id number]- V100-BcL Yary Nathan were developed and had performance characteristics determined by [employer]. These tests have not been cleared or approved by the U.S. Food and Drug Administration. The FDA has determined that such clearance or approval is not necessary. These tests are used for clinical purposes. These should not be regarded as investigational or for research. Performed at: [address] [id number] Knurling Machine Operator: Kyle Hernandez MD, Phone: [phone] 64 Levels of Specific IgE Class Description of Class -- ----- < 0.10 0 Negative 0.10 - 0.31 0/I Equivocal/Low 0.32 - 0.55 I Low 0.56 - 1.40 II Moderate 1.41 - 3.90 III High 3.91 - 19.00 IV Very High 19.01 - >100.00 Very High 65 FIRST MORNING SPECIMENS GENERALLY CONTAIN THE HIGHEST CONCENTRATION OF HCG AND ARE RECOMMENDED FOR EARLY DETECTION OF . 66 Note: Persistent reduction for 3 months or more in an eGFR <60 mL/min/1.73 m2 defines CKD. Patients with eGFR values >/=60 mL/min/1.73 m2 may also have CKD if evidence of persistent proteinuria is present. The original MDRD equation for estimated GFR is not valid for patients less than 18 years of age. Additional information may be found at www.[email or web address]. 67 Values below the stated reference ranges of AST and ALT can be seen in normal populations. Clinical correlation is suggested. 68 Organism 1 ! URETHRAL DEVONTE Quantity ! > 100,000 CFU/mL SPECIMEN IS A MIX OF GRAM POSITIVE ORGANISMS CONSISTENT WITH SKIN/VAGINAL CONTAMINATION. SUGGEST REPEAT SPECIMEN IF CLINICALLY INDICATED. 69 FIRST MORNING SPECIMENS GENERALLY CONTAIN THE HIGHEST CONCENTRATION OF HCG AND ARE RECOMMENDED FOR EARLY DETECTION OF . 70 07/09/14 LAB.CKS Deleted by [facility] Group [facility] 71 Note: Persistent reduction for 3 months or more in an eGFR <60 mL/min/1.73 m2 defines CKD. Patients with eGFR values >/=60 mL/min/1.73 m2 may also have CKD if evidence of persistent proteinuria is present. The original MDRD equation for estimated GFR is not valid for patients less than 18 years of age. Additional information may be found at www.kdoqi.org. 72 Values below the stated reference ranges of AST and ALT can be seen in normal populations. Clinical correlation is suggested. 73 Note: Persistent reduction for 3 months or more in an eGFR <60 mL/min/1.73 m2 defines CKD. Patients with eGFR values >/=60 mL/min/1.73 m2 may also have CKD if evidence of persistent proteinuria is present. The original MDRD equation for estimated GFR is not valid for patients less than 18 years of age. Additional information may be found at www.kdoqi.org. 74 CULTURE TO FOLLOW 75 COLONY COUNT ! >100,000 CFU/ml Organism 1 ! URETHRAL DEVONTE 76 04/18/14 LAB.CKS Deleted by [facility] 77 POSSIBLE UROGENITAL CONTAMINATION. 78 PENDING; TEST PERFORMED ON MONDAYS AND THURSDAYS 79 CULTURE TO FOLLOW 80 COLONY COUNT ! >100,000 CFU/ml Organism 1 ! URETHRAL DEVONTE 81 03/06/14 LAB.CKS Deleted by [facility]lex Group [facility] 82 POSSIBLE UROGENITAL CONTAMINATION. 83 02/10/14 LAB.NH WRONG TEST ORDERED [address]HURLEY REEVES GLUCOSE 85 COLONY COUNT ! 80,000-100,000 CFU/ml Organism 1 ! MIXED URETHRAL DEVONTE 86 NO GROUP B STREPTOCOCCI ISOLATED 87 Acceptable specimens for this test are male urethral swab, endocervical swab and liquid based pap specimens, vaginal swabs in APTIMA transports and first void urine. See online Directory of Services for test number for rectal and pharyngeal specimens. Performed at: RN - [facility] [address] [place] [id number] Knurling Machine Operator: Sandy Jacobo MD, Phone: [phone] 88 A1c value between 5.7% and 6.4% is considered at increased risk for diabetes. A1c value greater than 6.5 % is considered essentially diagnostic for Type II diabetes. Current guidelines recommend a treatment goal of <7% for diabetic patients. This method will measure glycosylated hemoglobin variants, HbS, HbG , HbH, HbWayne, HbC, HbE, etc. Other hemoglobin- opathies may give incorrect results with this test. 89 POST GLUCOLA 90 NO SPECIMEN RECEIVED 91 NO SPECIMEN RECEIVED 92 12/24/13 LAB.DWM Deleted by [facility] Group [facility] 93 POSSIBLE UROGENITAL CONTAMINATION. 94 COLONY COUNT ! 80,000-100,000 CFU/ml Organism 1 ! MIXED URETHRAL DEVONTE 95 Note: Persistent reduction for 3 months or more in an eGFR <60 mL/min/1.73 m2 defines CKD. Patients with eGFR values >/=60 mL/min/1.73 m2 may also have CKD if evidence of persistent proteinuria is present. The original MDRD equation for estimated GFR is not valid for patients less than 18 years of age. Additional information may be found at www.kdoqi.org. 96 CULTURE TO FOLLOW 97 03/29/13 LAB.GSP Deleted by [facility] 98 COLONY COUNT ! >100,000 CFU/ml Organism 1 ! URETHRAL DEVONTE 99 Note: Persistent reduction for 3 months or more in an eGFR <60 mL/min/1.73 m2 defines CKD. Patients with eGFR values >/=60 mL/min/1.73 m2 may also have CKD if evidence of persistent proteinuria is present. The original MDRD equation for estimated GFR is not valid for patients less than 18 years of age. Additional information may be found at www.kdoqi.org. 100 Negative serology. Celiac disease unlikely. However, approximately 10% of patients with celiac disease are seronegative. Also, patients who are already adhering to a gluten-free diet may be seronegative. If celiac disease is highly clinically suspected, consider HLA-DQ typing. Test Performed by: [place] [address] Healthcare Analyst: Jorge Luis Mcbride III, M.D. 101 -- REFERENCE VALUE -- <4.0 (Negative) Test Performed by: [place] [address] Healthcare Analyst: Jorge Luis Mcbride III, M.D. 102 Because ethnic data is not always readily available, this report includes an eGFR for both -Americans and non- Americans. The National Kidney Disease Education Program (NKDEP) does not endorse the use of the MDRD equation for patients that are not between the ages of 18 and 70, are , have extremes of body size, muscle mass, or nutritional status, or are non- or non-. According to the National Kidney Foundation, irrespective of diagnosis, the stage of the disease is based on the level of kidney function: Stage Description GFR(mL/min/1.73 m(2)) 1 Kidney damage with normal or decreased GFR 90 2 Kidney damage with mild decrease in GFR 60- 89 3 Moderate decrease in GFR 30-59 4 Severe decrease in GFR 15-29 5 Kidney failure <15 (or dialysis) 103 RUN DATE: 12/21/12 [facility] LAB LIVE PAGE 1 RUN TIME: [address] [place] [id number] Specimen Inquiry ---- Name: XIAO LOPEZ : [address]: Lindasy Beck NP Acct: [id number] Unit: [id number] AGE: 17 Location: [facility] Re12/19/12 SEX: F Status: REG REF ---- SPEC: [id number] HEMANTH: 12/19/[address]: Lindsay Beck NP REQ: [id number] RECD: 12/19/12 STATUS: COMP _ SOURCE: URINE SPDESC: ORDERED: Urine Culture QUERIES: Medent Number [id number] Urine Source: Random ---- Procedure Result Verified Site ---- Urine Culture Final 12/21/12-950 ML Organism 1 ESCHERICHIA COLI [place] Count 10-25,000 (Moderate) CFU/ML 1. ESCHERICHIA COLI [facility].I.C. RX ------ --- ------ Ampicillin 4 S Cefazolin <=4 S Cefepime <=1 S Ceftriaxone <=1 S Ciprofloxacin <=0.25 S Gentamicin <=1 S Imipenem <=0.25 S Levofloxacin <= 0.12 S Meropenem <=0.25 S Nitrofurantoin <=16 S Tetracycline <=1 S Pipercillin/Tazobactam <=4 S Trimethoprim/Sulfamethoxazole <=20 S Amoxicillin/Clavulanic Acid 4 S Aztreonam <=1 S Contact the Microbiology Department for any additional antibiotic reporting. ---- END OF REPORT * ML=Testing performed at Main Lab DEPARTMENT OF PATHOLOGY, [address] [place] [address] Gordy Ornelas M.D. Director [facility] Permit # [id number] 104 FIRST MORNING SPECIMENS GENERALLY CONTAIN THE HIGHEST CONCENTRATION OF HCG AND ARE RECOMMENDED FOR EARLY DETECTION OF . 105 12/19/12 LAB.MPK Deleted by Reflex Group [facility] Procedures Date Code Description Status 07/13/2018 94772 Cystoscopy Completed 06/27/2018 11002 Cystourethroscopy W/ Lithotripsy Incl. Ins. Indwelling Completed Stent 10/30/2015 63719 Theraputic Or Diagnostic Injection Completed 03/25/2015 03709 Removal, Non-Biodegradable Drug Delivery Implant Completed 03/12/2015 15514 Fracture closed distal fib w/o manipulation Completed 05/27/2014 25054 Post- Care Only Completed 05/08/2014 10900 Insertion, Non-Biodegradable Drug Delivery Implant Completed 04/14/2014 02542 Vaginal Delivery Global Care Completed 04/10/2014 61013 Non-Stress Test (NST) Completed 04/02/2014 88897 Antepartum 7 Or More Total Office Visit Completed 03/24/2014 35934 Antepartum 7 Or More Total Office Visit Completed 03/17/2014 83502 Antepartum 7 Or More Total Office Visit Completed 03/10/2014 36379 Antepartum 7 Or More Total Office Visit Completed 02/24/2014 28201 Antepartum 7 Or More Total Office Visit Completed 02/10/2014 45916 Antepartum 7 Or More Total Office Visit Completed 01/22/2014 02390 Antepartum 7 Or More Total Office Visit Completed 12/16/2013 93700 Antepartum 7 Or More Total Office Visit Completed 12/13/2010 77437 Radiology, Finger(S), Two Views Completed 11/10/2010 17833 Radiology, Finger(S), Two Views Completed 10/18/2010 64768 Radiology, Finger(S), Two Views Completed 10/18/2010 74281 Fracture-closed finger or thumb Completed Encounters Type Date Location Provider Dx Diagnosis Office Visit 07/13/2018 Urology Georges Jones, N20.0 Calculus of kidney 7:30a M.D. Office Visit 07/09/2018 Family Medicine Family Nurse Z11.1 Encounter for 9:30a Saul WELLS screening for respiratory tuberculosis Office Visit 07/06/2018 Family Medicine Kayy Snow, Z00.00 Encntr for general 10:15a Saul WELLS DIVISION DIRECTOR adult medical exam w/o abnormal findings E66.9 Obesity, unspecified Z11.1 Encounter for screening for respiratory tuberculosis Z23 Encounter for immunization Office Visit 06/26/2018 1:00p Urology Robert N20.0 Calculus of kidney Garry Su Office Visit 02/14/2017 4:00p Family Medicine Tony, J45.901 Unspecified asthma Saul WELLS Juan F, with (acute) DIVISION DIRECTOR exacerbation Office Visit 11/02/2015 10:15a Family Medicine Tony Z11.1 Encounter for Saul Pinafranc[place]or[place]tr[place], screening for DIVISION DIRECTOR respiratory tuberculosis Office Visit 10/29/2015 10:45a Family Medicine Ángela Esqueda Z00.00 Encntr for general Saul WELLS M.D. adult medical exam w/o abnormal findings Z23 Encounter for immunization Office Visit 09/10/2015 2:30p Family Medicine Philippe Z00.00 Encntr for Saul Zamora MD general adult medical exam w/o abnormal findings F41.9 Anxiety disorder, unspecified Z01.419 Encntr for fundraising officer exam (general) (routine) w/o abn findings Office Visit 03/09/2015 Family Yobani Paez, 789.00 Pain Abdominal 3:45p Saul Zamora MD Unspec Site Office Visit 11/24/2014 Family Medicine Philippe, 300.00 Anxiety State 1:15p Saul Zamora MD Unspec Office Visit 03/30/2013 Surgical Office Jim, 789.00 Pain Abdominal 2:16p Ariel Martin Site Garry Office Visit 10/10/2012 Orthopaedic Dean Adorno 845.00 Sprains & 2:30p Sanjuana Nair MD Strains Ankle Unspec Site Office Visit 10/02/2012 Dean Barroso 845.00 Sprains & 11:00a Sanjuana Nair MD Strains Ankle Unspec Site E880.9 Fall On Or From Stairs Or Steps Other E849.0 Accident Home Plan of Treatment Future Appointment(s):09/21/2018 10:15 am - Georges Jones M.D. at [facility]/2018 - Georges Jones M.D.N20.0 Calculus of kidneyComments:Status post right ureteral stone removal. The stent was removed successfully today. Patient will come back in 2 months for follow-up ultrasound.
[2018-08-11 19:46] VITALS: BP 125/55
--- NOTE | 2018-08-11 20:09 | UC ---
Elbow Pain - HPI Summary HPI Summary: Slipped on ice and fell hitting right elbow at 7 AM. Ongoing pain with any movement. No numbness. - History of Current Complaint Chief Complaint: UCUpperExtremity Stated Complaint: S/P FALL RIGHT ELBOW Time Seen by Provider: 08/11/18 20:02 Hx Obtained From: Patient Hx Last Menstrual Period: 07/11/18 ?: No Onset/Duration: Hours - 12, Traumatic, Still Present Severity Initially: Severe Severity Currently: Severe Pain Intensity: 8 Location Of Pain: Is Discrete @ - posterior right elbow Character: Aching, Throbbing, Burning Aggravating Factor(s): Movement, Pulling Alleviating Factor(s): Nothing Associated Signs And Symptoms: Negative: Weakness, Numbness/Tingling - Allergies/Home Medications Allergies/Adverse Reactions: Allergies Allergy/AdvReac Type Severity Reaction Status Date / Time oxycodone AdvReac Vomiting Verified 06/24/18 09:51 bee sting Allergy Swelling Uncoded 06/24/18 09:51 PMH/Surg Hx/FS Hx/Imm Hx Respiratory History: Asthma Psychological History: Anxiety, Depression - Surgical History Surgical History: Yes Surgery Procedure, Year, and Place: TONSILLECTOMY - Family History Known Family History: Positive: Hypertension Negative: Cardiac Disease, Diabetes - Social History Occupation: Employed Full-time Lives: With Family Alcohol Use: Rare Substance Use Type: None Smoking Status (MU): Never Smoked Tobacco When Did the Patient Quit Smoking/Using Tobacco: 2010 - Immunization History Vaccination Up to Date: Yes Review of Systems All Other Systems Reviewed And Are Negative: Yes ENT: Positive: Nasal Discharge - with allergies Musculoskeletal: Positive: Arthralgia - right elbow Is Patient Immunocompromised?: No Physical Exam Triage Information Reviewed: Yes Appearance: Well-Appearing, Pain Distress, Obese Vital Signs: Initial Vital Signs Temp 98.3 F 08/11/18 19:44 Pulse 95 08/11/18 19:44 Resp 16 08/11/18 19:44 BP 125/55 08/11/18 19:44 Pulse Ox 100 08/11/18 19:44 Vital Signs Reviewed: Yes Eyes: Positive: Conjunctiva Clear Neck exam: Normal Respiratory Exam: Normal Cardiovascular Exam: Normal Musculoskeletal: Positive: Strength Limited @ - RIght arm strenght due to pain, ROM Limited @ - AROM due to pain. PROM intact Neurological: Positive: Other: - increased pain to pinprick posterior right elbow Psychological Exam: Normal Skin Exam: Normal Elbow Pain Course/Dx - Differential Dx/Diagnosis Differential Diagnosis/HQI/PQRI: Contusion, Fracture (Closed), Sprain Provider Diagnosis: Contusion of right elbow, Neuritis Discharge - Sign-Out/Discharge Documenting (check all that apply): Patient Departure All imaging exams completed and their final reports reviewed: No - Discharge Plan Condition: Stable Disposition: HOME Prescriptions: Gabapentin CAP(*) [Neurontin 300 CAP(*)] 300 mg PO TID #90 cap Patient Education Materials: Contusion in Adults (ED) Forms: *Work Release Referrals: No Primary Care Phys,NOPCP [Primary Care Provider] - (10 days if not feeling better.) Additional Instructions: Nerve Contusion: A bruised nerve causes the nerve to be irritated and extra sensitive to all sensations. Ice can make it feel worse. Harpreet wraps frequently aren't tolerated either. It may take weeks to resolve. GABAPENTIN: Gabapentin is an anti-seizure medication that is more often used for nerve pain. It helps to stabilize the nerve to stop the pain. Its primary side effect is sedation which will improve over time. Most people will start with only one capsule 1 to 2 hours before bed, but if your pain is more severe you may want to start with one capsule twice a day. If the pain is still an issue after another 1-2days the dose may be increased to a maximum of 1 capsule 3 times a day. Decrease the dose by one capsule a day if there is excessive sedation or it is not working. You can also decrease it to discontinue it if the pain is resolving. - Billing Disposition and Condition Condition: STABLE Disposition: Home
--- NOTE | 2018-08-12 09:09 | ED ---
Progress - Progress Note Progress Note: Final x-ray report of the right elbow:Normal radiograph of the right elbow. If the patient's symptoms persist further follow-up imaging is recommended. Course/Dx - Diagnoses Provider Diagnoses: Contusion of right elbow, Neuritis Discharge - Sign-Out/Discharge Documenting (check all that apply): Patient Departure, Post-Discharge Follow Up All imaging exams completed and their final reports reviewed: Yes - Discharge Plan Condition: Stable Disposition: HOME Prescriptions: Gabapentin CAP(*) [Neurontin 300 CAP(*)] 300 mg PO TID #90 cap Patient Education Materials: Contusion in Adults (ED) Forms: *Work Release Referrals: No Primary Care Phys,NOPCP [Primary Care Provider] - (10 days if not feeling better.) Additional Instructions: Nerve Contusion: A bruised nerve causes the nerve to be irritated and extra sensitive to all sensations. Ice can make it feel worse. Harpreet wraps frequently aren't tolerated either. It may take weeks to resolve. GABAPENTIN: Gabapentin is an anti-seizure medication that is more often used for nerve pain. It helps to stabilize the nerve to stop the pain. Its primary side effect is sedation which will improve over time. Most people will start with only one capsule 1 to 2 hours before bed, but if your pain is more severe you may want to start with one capsule twice a day. If the pain is still an issue after another 1-2days the dose may be increased to a maximum of 1 capsule 3 times a day. Decrease the dose by one capsule a day if there is excessive sedation or it is not working. You can also decrease it to discontinue it if the pain is resolving. - Billing Disposition and Condition Condition: STABLE Disposition: Home
== END 2018-08-11 20:30 | disposition home or self-care (01) ==
LOC: UCCORT 19:22
DX: S50.01XA Contusion of right elbow, initial encounter (principal); W00.0XXA Fall on same level due to ice and snow, initial encounter; Y92.9 Unspecified place or not applicable; Z88.5 Allergy status to narcotic agent
CPT/HCPCS: 99213; G0463

== ENCOUNTER 2018-08-27 15:50 | Emergency (ER) | payer OTHER ==
[2018-08-27 16:11] VITALS: BP 134/62
--- NOTE | 2018-08-27 16:13 | UC ---
Complaint Female HPI - HPI Summary HPI Summary: 23 y/o female presents to the urgent care requesting a test. Pt reports she did 2 tests about 2 days ago which were positive. Seh would like to confirm and have a note to bring to [facility] that states she is to get the help she need for her pre- care. Pt states mild nausea in the morning for the past week which is relief w/ eating. Pt denies fever, urinary symptoms, flank pain, abdominal pain, vaginal bleeding, SOB, chest pain , V/D. - History Of Current Complaint Chief Complaint: UCGU Stated Complaint: PERSONAL Time Seen by Provider: 08/27/18 16:07 Hx Obtained From: Patient Hx Last Menstrual Period: 06/11/19 ?: Yes - she has done 2 positive test Onset/Duration: Still Present Severity Currently: None Pain Intensity: 0 Pain Scale Used: 0-10 Numeric Character: Not Applicable Aggravating Factor(s): Nothing Alleviating Factor(s): Nothing Associated Signs And Symptoms: Positive: Negative Related Hx: - 3, Para - 2 - Risk Factors Ectopic Risk Factor: Maternal Age ^ 30 Ovarian Torsion Risk Factor: Negative - Allergies/Home Medications Allergies/Adverse Reactions: Allergies Allergy/AdvReac Type Severity Reaction Status Date / Time oxycodone AdvReac Vomiting Verified 08/27/18 16:11 bee sting Allergy Swelling Uncoded 08/27/18 16:11 PMH/Surg Hx/FS Hx/Imm Hx Previously Healthy: Yes Respiratory History: Asthma - Surgical History Surgical History: Yes Surgery Procedure, Year, and Place: TONSILLECTOMY - Family History Known Family History: Positive: Cardiac Disease, Hypertension Negative: Diabetes Family History: cervical cancer - Social History Occupation: Unemployed Lives: With Family Alcohol Use: Rare Substance Use Type: None Smoking Status (MU): Never Smoked Tobacco When Did the Patient Quit Smoking/Using Tobacco: 2010 - Immunization History Vaccination Up to Date: Yes Review of Systems All Other Systems Reviewed And Are Negative: Yes Constitutional: Positive: Negative Skin: Positive: Negative Eyes: Positive: Negative ENT: Positive: Negative Respiratory: Positive: Negative Cardiovascular: Positive: Negative Gastrointestinal: Positive: Nausea - mild in the morning Genitourinary: Positive: Negative Motor: Positive: Negative Neurovascular: Positive: Negative Musculoskeletal: Positive: Negative Neurological: Positive: Negative Psychological: Positive: Negative Is Patient Immunocompromised?: No Physical Exam - Summary Physical Exam Summary: VITAL SIGNS: Reviewed. GENERAL: Patient is a well developed and nourished female who is sitting comfortable in the examining table. Patient is not in any acute respiratory distress. HEAD AND FACE: No signs of trauma. No ecchymosis, hematomas or skull depressions. No sinus tenderness. EYES: PERRLA, EOMI x 2, No injected conjunctiva, clear watery eyes, no nystagmus. No photophobia. EARS: Hearing grossly intact. Ear canals and tympanic membranes are within normal limits. MOUTH: pharynx with no erythema, no exudates,no palatal petechiae. no B/L tonsillar enlargement Uvula in midline. NECK: Supple, trachea is midline, no lymphadenopathy, no JVD, no carotid bruit, no c-spine tenderness, neck with full ROM. CHEST: Symmetric, no tenderness at palpation LUNGS: Clear to auscultation bilaterally. No wheezing or crackles. CVS: Regular rate and rhythm, S1 and S2 present, no murmurs or gallops appreciated. ABDOMEN: Soft, non-tender. No signs of distention. No rebound no guarding, and no masses palpated. Bowel sounds are normal. BACK:no scoliosis or lesions, non tender to palpation, No B/L CVA tenderness EXTREMITIES: FROM in all major joints, no edema, no cyanosis or clubbing. NEURO: Alert and oriented x 3. No acute neurological deficits. Speech is normal and follows commands. SKIN: Dry and warm Triage Information Reviewed: Yes Vital Signs: Initial Vital Signs Temp 97.5 F 08/27/18 16:06 Pulse 90 08/27/18 16:06 Resp 14 08/27/18 16:06 BP 134/62 08/27/18 16:06 Pulse Ox 100 08/27/18 16:06 Complaint Female Dx - Course Course Of Treatment: 23 y/o female presents to the urgent care requesting a test. Pt reports she did 2 tests about 2 days ago which were positive. Se would like to confirm and have a note to bring to [facility] that states she is to get the help she need for her pre-matt care. Pt states mild nausea in the morning for the past week which is relief w/ eating. Pt denies fever, urinary symptoms, flank pain, abdominal pain, vaginal bleeding , SOB, chest pain, V/D. Hx obtained. UA:positive trace of blood. test : positive. Pt Rx Mutivitamins. Advised to f/u w/ her MEDICAL PLANNER DR Berry for her care and hematuria. D/C instructions explained. Pt understood and agreed w/ plan of care. - Differential Dx/Diagnosis Differential Diagnosis/HQI/PQRI: Cervicitis, , Renal Colic, Ureteral Stone, Urinary Tract Infection Provider Diagnosis: Discharge - Sign-Out/Discharge Documenting (check all that apply): Patient Departure - D/C home All imaging exams completed and their final reports reviewed: No Studies - Discharge Plan Condition: Stable Disposition: HOME Prescriptions: Vitamin TAB* 1 tab PO DAILY #30 tab Patient Education Materials: (ED) Referrals: Tiburcio Berry MD [Medical Doctor] - 1 Week Kandy Jimenez NP [Primary Care Provider] - 1 Week Additional Instructions: 1- test:positive 2- You are probably 8 weeks on your . Please start taking the Vitamins as directed. 3- Please f/u w/ your MEDICAL PLANNER Dr Berry for your care and further management on hematuria present in your urine. Please increase fluid intake, rest and eat well. Avoid strenuous exercise - Billing Disposition and Condition Condition: STABLE Disposition: Home - Attestation Statements Provider Attestation: Per institutional requirements, I have reviewed the chart, however, I was not consulted specifically or made aware of this patient by the midlevel provider. I did not personally evaluate, interact with , or disposition this patient.
== END 2018-08-27 16:34 | disposition home or self-care (01) ==
LOC: UCCORT 15:50
DX: Z32.01 Encounter for pregnancy test, result positive (principal); O99.89 Other specified diseases and conditions complicating pregnancy, childbirth and the puerperium; O99.511 Diseases of the respiratory system complicating pregnancy, first trimester; J45.909 Unspecified asthma, uncomplicated; R11.0 Nausea; R31.9 Hematuria, unspecified; Z88.5 Allergy status to narcotic agent; Z91.030 Bee allergy status
CPT/HCPCS: 81003; 84702; 99212; G0463